=== PATIENT | male | born 1955 | race Caucasian/White ===

== ENCOUNTER 2018-06-12 09:10 | Emergency (ER) | payer BC ==
[~2018-06-12 09:10] MED LIST: Sodium Chloride 0.9% 100 ML BAG ONE
--- NOTE | 2018-06-12 09:40 | RAD ---
PORTABLE CHEST: Date: 06-12-18 Provided Clinical History: Dyspnea. FINDINGS: Comparison 08-16-17. There is somewhat mass like opacity involving the left hilar/parahilar region. The re is widening of the superior mediastinum. There is poor definition to the left heart margin that ma y reflect lingular atelectasis or infiltrate. Prominence of the pulmonary interstitium is again seen. There is no evidence for pneumothorax. Post-operative changes involve the cervical spine. Left subcl makeda cardiac pacing device is again seen. IMPRESSION: 1. Abnormal chest radiograph. Hilar/parahilar mass like opacity and silhouetting of the left heart ma rgin may be on the basis of infectious or neoplastic etiologies. 2. Widening of the superior mediastinum may reflect mediastinal mass or adenopathy. Other etiologies are not excluded. 3. Consider chest CT for further evaluation. POS: [facility]
[2018-06-12 09:42] LABS: #Basophils 0.1 thou/uL (0.0-0.2); #Eosinphils 0.2 thou/uL (0.0-0.7); #Lymphocytes 1.6 thou/uL (1.20-3.40); #Monocytes 0.6 thou/uL (0.11-0.59); #Neutrophils 9.7 thou/uL (1.40-6.50); %Basophils 0.8 % (0.0-1.0); %Eosinophils 1.8 % (0.0-10.0); %Monocytes 4.6 % (0.0-10.0); %Neutrophils 79.8 % (42.0-75.0); Hemoglobin 17.1 g/dL (14.0-18.0); Mean Corpuscular HGB CONC 31.3 g/dL (32.0-36.0); Mean Corpuscular Hemoglobin 30.8 pg (27.0-31.0); Mean Corpuscular Volume 98.3 fL (78.0-98.0); Mean Platelet Volume 6.9 fL (7.4-10.4); Platelet Count 155 thou/uL (130-400); RBC Distribution Width 12.9 % (11.5-14.5); Red Blood Cell (RBC) Count 5.54 mill/uL (4.70-6.10); White Blood Cell (WBC) Count 12.2 thou/uL (4.8-10.8)
[2018-06-12 10:04] LABS: O2 Tension (PvO2) 107.6 mmHg (35.0-45.0); pH (Venous) 7.409 (7.35-7.45)
[2018-06-12 10:05] LABS: Base Excess-Venous -0.4 mmol/L (0 (+/- 2.5)); Calcium, Ionized 1.15 mmol/L (1.12-1.32); Hemoglobin - Calc 18.4 g/dL (12.0-18.0); Potassium 3.9 mmol/L (3.4-4.7); T. Carbon Dioxide 25.2 mmol/L (1.0-85.0); vO2 Saturation-calc 98.2 % (94-98)
[2018-06-12 10:06] LABS: ALT (SGPT) 30 U/L (8-55); AST (SGOT) 24 U/L (5-34); Alkaline Phosphatase 65 U/L (40-150); Anion Gap 13 mmol/L (10-20); BUN (Urea Nitrogen) 25 mg/dL (8.4-25.7); Bilirubin, Total 0.7 mg/dL (0.2-1.2); Calc. Creatinine Clearance 0 mL/min (70-130); Calcium 8.8 mg/dL (7.8-10.44); Carbon Dioxide 22 mmol/L (22-29); Chloride 108 mmol/L (98-107); Estimated GFR-MDRD Greater than 90; Globulin 2.5 g/dL (2.4-3.5); Glucose 106 mg/dL (70-105); Potassium 4.3 mmol/L (3.5-5.1); Protein, Total 6.5 g/dL (6.0-8.3); Sodium 139 mmol/L (136-145)
--- NOTE | 2018-06-12 10:46 | CT ---
CT CHEST WITHOUT CONTRAST: Date: 06/12/18 HISTORY: Dyspnea. Unproductive cough. COMPARISON: Chest radiograph dated 06/12/18. FINDINGS: There is a large left perihilar mass extending into the mediastinum and left upper lobe with postobst ructive bronchiectasis. There is extensive subcarinal AP window and prevascular adenopathy. Overall, this mass is difficult to fully measure given the lack of intravenous contrast, although measures verito roximately 5.0 x 8.0 x 6.0 cm. The confluent prevascular adenopathy is almost as large as the primary mass. There is right paratracheal, paraesophageal, subcarinal adenopathy. There are also right parah ilar lymph nodes. Postobstructive pneumonitis in left upper lobe with likely superimposed lymphangitic spread of tumor. There is narrowing of the apical posterior anterior bronchi. There are metastatic nodules throughout the lingula and left upper lobe. The largest lingular metastatic focus measures 1.2 cm in size. No metastatic foci are seen within the lower lobes. Moderate paraseptal and centrilobular emphysema. No acute thoracic spine compression fracture. No acute rib fracture. No suspicious osteoblastic or os teolytic foci. IMPRESSION: Large left perihilar mass with mediastinal invasion, as well as extensive subcarinal, prevascular, AP window, right paratracheal adenopathy, as well as right hilar lymph nodes. This is cancer until prov en otherwise. There is metastatic satellite nodules throughout the left upper lobe, as well as postob structive pneumonitis and superimposed lymphangitic spread of tumor. CODE T. CODE LN. POS: [facility]
[2018-06-12] MEDS ORDERED: Cefepime 1 GM VIAL ONE (11:33)
[2018-06-12] MEDS ORDERED: methylPREDNISolone Sod Succ/PF 125 MG/2 ML VIAL ONE (11:33)
== END 2018-06-12 11:47 | disposition short-term general hospital (02) ==
LOC: MADERS 09:10
DX: C34.92 Malignant neoplasm of unspecified part of left bronchus or lung (principal); I10 Essential (primary) hypertension; K21.9 Gastro-esophageal reflux disease without esophagitis; I48.91 Unspecified atrial fibrillation; E78.00 Pure hypercholesterolemia, unspecified; F17.210 Nicotine dependence, cigarettes, uncomplicated; Z79.899 Other long term (current) drug therapy; Z79.82 Long term (current) use of aspirin
CPT/HCPCS: 71045; 71250; 80053; 82330; 82803; 83880; 84484; 85025; 87804; 93005; 96374; 96375; J0692; J2930; J7050

== ENCOUNTER 2018-07-29 09:08 | Outpatient (CLI) | payer BC ==
[2018-07-29 09:37] LABS: Hemoglobin 15.8 g/dL (14.0-18.0); Mean Corpuscular HGB CONC 32.3 g/dL (32.0-36.0); Mean Corpuscular Hemoglobin 30.7 pg (27.0-31.0); Mean Corpuscular Volume 94.9 fL (78.0-98.0); Mean Platelet Volume 7.3 fL (7.4-10.4); Platelet Count 148 thou/uL (130-400); Red Blood Cell (RBC) Count 5.15 mill/uL (4.70-6.10); White Blood Cell (WBC) Count 7.6 thou/uL (4.8-10.8)
[2018-07-29 09:53] LABS: ALT (SGPT) 20 U/L (8-55); AST (SGOT) 15 U/L (5-34); Alkaline Phosphatase 79 U/L (40-150); Anion Gap 13 mmol/L (10-20); BUN (Urea Nitrogen) 21 mg/dL (8.4-25.7); Bilirubin, Total 0.7 mg/dL (0.2-1.2); Calc. Creatinine Clearance 0 mL/min (70-130); Carbon Dioxide 22 mmol/L (22-29); Estimated GFR-MDRD Greater than 90; Globulin 2.8 g/dL (2.4-3.5); Glucose 105 mg/dL (70-105); Phosphorus 3.1 mg/dL (2.3-4.7); Potassium 4.3 mmol/L (3.5-5.1); Protein, Total 6.8 g/dL (6.0-8.3); Sodium 139 mmol/L (136-145); Uric Acid 5.5 mg/dL (3.5-7.2)
[2018-07-29 10:53] LABS: Chloride 108 mmol/L (98-107)
== END 2018-07-29 09:09 | disposition home or self-care (01) ==
LOC: MADLAB 09:08
PROVIDERS: ATTEND Internal Medicine Hematology & Oncology
DX: C34.02 Malignant neoplasm of left main bronchus (principal); D69.59 Other secondary thrombocytopenia
CPT/HCPCS: 36415; 80053; 83615; 84100; 84436; 84443; 84550; 85027

== ENCOUNTER 2018-12-18 13:24 | Emergency (ER) | payer BC ==
[2018-12-18] MEDS ORDERED: Acetaminophen/Codeine 30-300mg Tablet ONE (13:49)
--- NOTE | 2018-12-18 14:40 | CT ---
LUMBAR SPINE CT NONCONTRAST: 12/18/18 INDICATION: Low back pain with history of malignancy, metastatic disease. COMPARISON: Reference made to 12/31/08 exam. Chest, abdomen and pelvic CT 12/05/18. FINDINGS: Prominent sclerosis is seen involving the end plates of the mid to lower lumbar spine most pronounce d at L2-3 through L4 segments. There is gas vacuum phenomenon at multiple levels. Incidental note of nodularity of the left adrenal gland. There is colonic diverticulosis and scattere d vascular disease. There is redemonstration of prior posterior decompression at the lower lumbar spine. IMPRESSION: No evidence of acute compression fracture or subluxation of the lumbar spine. Prominent degenerative change. No interval osseous metastatic disease is identified. POS: [facility]
== END 2018-12-18 15:11 | disposition home or self-care (01) ==
LOC: MADERS 13:24
DX: M54.5 Low back pain (principal); I48.91 Unspecified atrial fibrillation; K21.9 Gastro-esophageal reflux disease without esophagitis; E78.5 Hyperlipidemia, unspecified; I10 Essential (primary) hypertension; E66.9 Obesity, unspecified; G47.30 Sleep apnea, unspecified; Z87.891 Personal history of nicotine dependence; Z79.82 Long term (current) use of aspirin; Z79.51 Long term (current) use of inhaled steroids; Z79.899 Other long term (current) drug therapy
CPT/HCPCS: 72131

== ENCOUNTER 2019-02-02 18:23 | Emergency (ER) | payer BC ==
[~2019-02-02 18:23] MED LIST changes: +Iopamidol 370 76% 100 ML VIAL ONE; -Sodium Chloride 0.9% 100 ML BAG ONE
[2019-02-02 19:28] LABS: #Basophils 0.1 thou/uL (0.0-0.2); #Eosinphils 0.2 thou/uL (0.0-0.7); #Lymphocytes 1.7 thou/uL (1.20-3.40); #Monocytes 0.6 thou/uL (0.11-0.59); #Neutrophils 4.5 thou/uL (1.40-6.50); %Basophils 1.3 % (0.0-1.0); %Eosinophils 2.9 % (0.0-10.0); %Monocytes 8.6 % (0.0-10.0); %Neutrophils 63.2 % (42.0-75.0); Hemoglobin 14.9 g/dL (14.0-18.0); Mean Corpuscular HGB CONC 33.1 g/dL (32.0-36.0); Mean Corpuscular Hemoglobin 31.1 pg (27.0-31.0); Mean Corpuscular Volume 93.8 fL (78.0-98.0); Mean Platelet Volume 6.7 fL (7.4-10.4); Platelet Count 124 thou/uL (130-400); RBC Distribution Width 12.8 % (11.5-14.5); Red Blood Cell (RBC) Count 4.81 mill/uL (4.70-6.10)
[2019-02-02 19:46] LABS: ALT (SGPT) 21 U/L (8-55); AST (SGOT) 20 U/L (5-34); Alkaline Phosphatase 78 U/L (40-150); Anion Gap 15 mmol/L (10-20); BUN (Urea Nitrogen) 18 mg/dL (8.4-25.7); Bilirubin, Total 0.6 mg/dL (0.2-1.2); Calc. Creatinine Clearance 0 mL/min (70-130); Calcium 8.6 mg/dL (7.8-10.44); Carbon Dioxide 22 mmol/L (23-31); Chloride 109 mmol/L (98-107); Estimated GFR-MDRD Greater than 90; Globulin 2.7 g/dL (2.4-3.5); Glucose 110 mg/dL (80-115); Potassium 3.6 mmol/L (3.5-5.1); Protein, Total 6.7 g/dL (5.8-8.1); Sodium 142 mmol/L (136-145)
--- NOTE | 2019-02-02 20:52 | CT ---
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 FINDINGS: There is no evidence of recurrent neoplasm in the left hilum or in the left upper lobe lung parenchym a.. Chronic interstitial changes in the lungs, including peripheral subpleural reticular densities in the anterior segments of bilateral upper lobes, and to a lesser degree at other areas,. Such changes are also noted at the posterior bases of the bilateral lower lobes, greater than previou sly. No new consolidation or new pulmonary mass. No pulmonary edema, pneumothorax, or pleural effusion. No thoracic aortic aneurysm. Atherosclerotic calcific patient of coronary arteries. No card iomegaly or pericardial effusion. Left subclavian pacemaker. No mediastinal or hilar lymphadenopathy. IMPRESSION: 1. No evidence of recurrent or residual lung cancer. 2. Chronic mild to moderate interstitial lung disease. 3. No acute findings.
== END 2019-02-02 21:10 | disposition home or self-care (01) ==
LOC: MADERS 18:23
DX: S16.1XXA Strain of muscle, fascia and tendon at neck level, initial encounter (principal); G47.30 Sleep apnea, unspecified; K21.9 Gastro-esophageal reflux disease without esophagitis; I48.91 Unspecified atrial fibrillation; Z87.891 Personal history of nicotine dependence; Z79.899 Other long term (current) drug therapy; Z79.82 Long term (current) use of aspirin; X58.XXXA Exposure to other specified factors, initial encounter
CPT/HCPCS: 70491; 71260; 80053; 85025; Q9967

== ENCOUNTER 2019-07-10 13:24 | Outpatient (CLI) | payer BC ==
[2019-07-10 13:45] LABS: Hemoglobin 17.2 g/dL (14.0-18.0); Mean Corpuscular Hemoglobin 30.3 pg (27.0-31.0); Mean Corpuscular Volume 97.7 fL (78.0-98.0); Mean Platelet Volume 7.9 fL (7.4-10.4); Platelet Count 161 thou/uL (130-400); RBC Distribution Width 12.5 % (11.5-14.5); Red Blood Cell (RBC) Count 5.68 mill/uL (4.70-6.10); White Blood Cell (WBC) Count 7.7 thou/uL (4.8-10.8)
[2019-07-10 14:00] LABS: ALT (SGPT) 26 U/L (8-55); AST (SGOT) 20 U/L (5-34); Albumin 4.2 g/dL (3.4-4.8); Alkaline Phosphatase 82 U/L (40-110); Anion Gap 14 mmol/L (10-20); BUN (Urea Nitrogen) 28 mg/dL (8.4-25.7); Bilirubin, Direct 0.3 mg/dL (0.1-0.3); Bilirubin, Total 0.8 mg/dL (0.2-1.2); Calc. Creatinine Clearance 0 mL/min (70-130); Calcium 9.2 mg/dL (7.8-10.44); Carbon Dioxide 26 mmol/L (23-31); Chloride 107 mmol/L (98-107); Estimated GFR-MDRD 86; Glucose 95 mg/dL (80-115); Protein, Total 7.2 g/dL (5.8-8.1); Sodium 143 mmol/L (136-145); Uric Acid 6.2 mg/dL (3.5-7.2)
[2019-07-10 14:15] LABS: Thyroid Stimulating Hormone 0.8278 uIU/mL (0.35-4.94)
[2019-07-10 21:56] LABS: LDH 303 U/L (125-220)
[2019-07-10 22:13] LABS: T4 7.8 ug/dL (4.87-11.72)
== END 2019-07-10 13:25 | disposition home or self-care (01) ==
LOC: MADLAB 13:24
PROVIDERS: ATTEND Internal Medicine
DX: C34.02 Malignant neoplasm of left main bronchus (principal); D69.59 Other secondary thrombocytopenia
CPT/HCPCS: 36415; 80053; 82248; 83615; 84100; 84436; 84443; 84550; 85027

== ENCOUNTER 2019-07-31 10:55 | Outpatient (CLI) | payer BC ==
[2019-07-31 11:20] LABS: Hemoglobin 16.4 g/dL (14.0-18.0); Mean Corpuscular HGB CONC 31.8 g/dL (32.0-36.0); Mean Corpuscular Hemoglobin 30.6 pg (27.0-31.0); Mean Corpuscular Volume 96.3 fL (78.0-98.0); Mean Platelet Volume 7.5 fL (7.4-10.4); Platelet Count 146 thou/uL (130-400); RBC Distribution Width 12.6 % (11.5-14.5); Red Blood Cell (RBC) Count 5.34 mill/uL (4.70-6.10)
[2019-07-31 11:44] LABS: ALT (SGPT) 24 U/L (8-55); AST (SGOT) 20 U/L (5-34); Albumin 4.1 g/dL (3.4-4.8); Alkaline Phosphatase 82 U/L (40-110); Anion Gap 14 mmol/L (10-20); BUN (Urea Nitrogen) 22 mg/dL (8.4-25.7); Bilirubin, Direct 0.4 mg/dL (0.1-0.3); Bilirubin, Total 0.7 mg/dL (0.2-1.2); Calc. Creatinine Clearance 0 mL/min (70-130); Calcium 8.7 mg/dL (7.8-10.44); Carbon Dioxide 24 mmol/L (23-31); Chloride 110 mmol/L (98-107); Estimated GFR-MDRD Greater than 90; Globulin 2.4 g/dL (2.4-3.5); Glucose 101 mg/dL (80-115); Phosphorus 2.9 mg/dL (2.3-4.7); Potassium 3.9 mmol/L (3.5-5.1); Protein, Total 6.5 g/dL (5.8-8.1); Sodium 144 mmol/L (136-145)
[2019-07-31 17:25] LABS: LDH 281 U/L (125-220)
== END 2019-07-31 10:56 | disposition home or self-care (01) ==
LOC: MADLAB 10:55
PROVIDERS: ATTEND Internal Medicine Hematology & Oncology
DX: C34.02 Malignant neoplasm of left main bronchus (principal)
CPT/HCPCS: 36415; 80053; 82248; 83615; 84100; 84436; 84443; 84550; 85027

== ENCOUNTER 2019-10-02 13:34 | Outpatient (CLI) | payer BC ==
[2019-10-02 14:01] LABS: Hemoglobin 16.2 g/dL (14.0-18.0); Mean Corpuscular HGB CONC 32.3 g/dL (32.0-36.0); Mean Corpuscular Hemoglobin 31.2 pg (27.0-31.0); Mean Corpuscular Volume 96.5 fL (78.0-98.0); Mean Platelet Volume 8.1 fL (7.4-10.4); Platelet Count 139 thou/uL (130-400); RBC Distribution Width 12.5 % (11.5-14.5); Red Blood Cell (RBC) Count 5.19 mill/uL (4.70-6.10)
[2019-10-02 14:30] LABS: ALT (SGPT) 29 U/L (8-55); AST (SGOT) 22 U/L (5-34); Albumin 4.1 g/dL (3.4-4.8); Alkaline Phosphatase 86 U/L (40-110); Anion Gap 14 mmol/L (10-20); BUN (Urea Nitrogen) 27 mg/dL (8.4-25.7); Bilirubin, Direct 0.3 mg/dL (0.1-0.3); Bilirubin, Total 0.8 mg/dL (0.2-1.2); Calc. Creatinine Clearance 0 mL/min (70-130); Calcium 8.7 mg/dL (7.8-10.44); Carbon Dioxide 25 mmol/L (23-31); Chloride 106 mmol/L (98-107); Estimated GFR-MDRD 79; Globulin 2.7 g/dL (2.4-3.5); Glucose 142 mg/dL (80-115); Phosphorus 3.4 mg/dL (2.3-4.7); Potassium 4.1 mmol/L (3.5-5.1); Protein, Total 6.8 g/dL (5.8-8.1); Sodium 141 mmol/L (136-145); Uric Acid 7.5 mg/dL (3.5-7.2)
[2019-10-02 14:45] LABS: Thyroid Stimulating Hormone 0.9017 uIU/mL (0.35-4.94)
[2019-10-02 22:00] LABS: T4 8.8 ug/dL (4.87-11.72)
[2019-10-03 09:39] LABS: LDH 273 U/L (125-220)
== END 2019-10-02 13:35 | disposition home or self-care (01) ==
LOC: MADLAB 13:34
PROVIDERS: ATTEND Internal Medicine Hematology & Oncology
DX: C34.02 Malignant neoplasm of left main bronchus (principal); D69.59 Other secondary thrombocytopenia
CPT/HCPCS: 36415; 80053; 82248; 83615; 84100; 84436; 84443; 84550; 85027

== ENCOUNTER 2019-10-22 13:10 | Outpatient (CLI) | payer BC ==
[2019-10-22 13:41] LABS: Hemoglobin 15.9 g/dL (14.0-18.0); Mean Corpuscular HGB CONC 33.2 g/dL (32.0-36.0); Mean Corpuscular Hemoglobin 32.4 pg (27.0-31.0); Mean Corpuscular Volume 97.6 fL (78.0-98.0); Mean Platelet Volume 9.2 fL (7.4-10.4); Platelet Count 148 thou/uL (130-400); RBC Distribution Width 12.9 % (11.5-14.5); White Blood Cell (WBC) Count 8.5 thou/uL (4.8-10.8)
[2019-10-22 14:05] LABS: ALT (SGPT) 25 U/L (8-55); AST (SGOT) 21 U/L (5-34); Albumin 4.1 g/dL (3.4-4.8); Alkaline Phosphatase 82 U/L (40-110); Anion Gap 14 mmol/L (10-20); BUN (Urea Nitrogen) 22 mg/dL (8.4-25.7); Bilirubin, Direct 0.4 mg/dL (0.1-0.3); Bilirubin, Total 0.7 mg/dL (0.2-1.2); Calc. Creatinine Clearance 0 mL/min (70-130); Calcium 8.1 mg/dL (7.8-10.44); Carbon Dioxide 22 mmol/L (23-31); Chloride 109 mmol/L (98-107); Estimated GFR-MDRD 88; Globulin 2.4 g/dL (2.4-3.5); Glucose 101 mg/dL (80-115); Phosphorus 2.8 mg/dL (2.3-4.7); Potassium 4.1 mmol/L (3.5-5.1); Protein, Total 6.5 g/dL (5.8-8.1); Sodium 141 mmol/L (136-145); Uric Acid 6.3 mg/dL (3.5-7.2)
[2019-10-22 14:10] LABS: Thyroid Stimulating Hormone 0.7895 uIU/mL (0.35-4.94)
[2019-10-22 21:49] LABS: LDH 313 U/L (125-220)
[2019-10-22 22:01] LABS: T4 8.2 ug/dL (4.87-11.72)
== END 2019-10-22 13:11 | disposition home or self-care (01) ==
LOC: MADLAB 13:10
PROVIDERS: ATTEND Internal Medicine Hematology & Oncology
DX: C34.02 Malignant neoplasm of left main bronchus (principal); D69.59 Other secondary thrombocytopenia
CPT/HCPCS: 36415; 80053; 82248; 83615; 84100; 84436; 84443; 84550; 85027

== ENCOUNTER 2019-11-12 09:17 | Outpatient (CLI) | payer BC ==
[2019-11-12 10:05] LABS: ALT (SGPT) 19 U/L (8-55); AST (SGOT) 16 U/L (5-34); Albumin 3.9 g/dL (3.4-4.8); Alkaline Phosphatase 86 U/L (40-110); Anion Gap 14 mmol/L (10-20); BUN (Urea Nitrogen) 25 mg/dL (8.4-25.7); Bilirubin, Direct 0.3 mg/dL (0.1-0.3); Bilirubin, Total 0.5 mg/dL (0.2-1.2); Calc. Creatinine Clearance 0 mL/min (70-130); Calcium 8.6 mg/dL (7.8-10.44); Carbon Dioxide 20 mmol/L (23-31); Chloride 110 mmol/L (98-107); Estimated GFR-MDRD Greater than 90; Globulin 2.8 g/dL (2.4-3.5); Glucose 117 mg/dL (80-115); Phosphorus 3.4 mg/dL (2.3-4.7); Potassium 3.9 mmol/L (3.5-5.1); Protein, Total 6.7 g/dL (5.8-8.1); Sodium 140 mmol/L (136-145); Uric Acid 5.6 mg/dL (3.5-7.2)
[2019-11-12 10:20] LABS: Thyroid Stimulating Hormone 0.989 uIU/mL (0.35-4.94)
[2019-11-12 10:46] LABS: Hemoglobin 16.6 g/dL (14.0-18.0); Mean Corpuscular HGB CONC 31.4 g/dL (32.0-36.0); Mean Corpuscular Hemoglobin 30.7 pg (27.0-31.0); Mean Corpuscular Volume 97.6 fL (78.0-98.0); Mean Platelet Volume 8.1 fL (7.4-10.4); Platelet Count 155 thou/uL (130-400); RBC Distribution Width 12.7 % (11.5-14.5); Red Blood Cell (RBC) Count 5.41 mill/uL (4.70-6.10); White Blood Cell (WBC) Count 7.8 thou/uL (4.8-10.8)
[2019-11-12 17:22] LABS: LDH 291 U/L (125-220)
[2019-11-12 17:40] LABS: T4 8.2 ug/dL (4.87-11.72)
== END 2019-11-12 09:18 | disposition home or self-care (01) ==
LOC: MADLAB 09:17
PROVIDERS: ATTEND Internal Medicine Hematology & Oncology
DX: C34.02 Malignant neoplasm of left main bronchus (principal); D69.59 Other secondary thrombocytopenia
CPT/HCPCS: 36415; 80053; 82248; 83615; 84100; 84436; 84443; 84550; 85027

== ENCOUNTER 2019-12-04 07:17 | Outpatient (CLI) | payer BC ==
[2019-12-04 07:37] LABS: Hemoglobin 15.6 g/dL (14.0-18.0); Mean Corpuscular HGB CONC 31.1 g/dL (32.0-36.0); Mean Corpuscular Hemoglobin 30.1 pg (27.0-31.0); Mean Corpuscular Volume 96.8 fL (78.0-98.0); Mean Platelet Volume 7.7 fL (7.4-10.4); Platelet Count 142 thou/uL (130-400); RBC Distribution Width 12.8 % (11.5-14.5); Red Blood Cell (RBC) Count 5.19 mill/uL (4.70-6.10); White Blood Cell (WBC) Count 7.4 thou/uL (4.8-10.8)
[2019-12-04 07:55] LABS: ALT (SGPT) 23 U/L (8-55); AST (SGOT) 19 U/L (5-34); Alkaline Phosphatase 86 U/L (40-110); Anion Gap 14 mmol/L (10-20); BUN (Urea Nitrogen) 23 mg/dL (8.4-25.7); Bilirubin, Direct 0.2 mg/dL (0.1-0.3); Bilirubin, Total 0.4 mg/dL (0.2-1.2); Calc. Creatinine Clearance 0 mL/min (70-130); Calcium 8.8 mg/dL (7.8-10.44); Carbon Dioxide 20 mmol/L (23-31); Chloride 111 mmol/L (98-107); Estimated GFR-MDRD Greater than 90; Globulin 2.6 g/dL (2.4-3.5); Glucose 112 mg/dL (80-115); Phosphorus 3.6 mg/dL (2.3-4.7); Potassium 4.1 mmol/L (3.5-5.1); Protein, Total 6.6 g/dL (5.8-8.1); Sodium 141 mmol/L (136-145); Uric Acid 5.5 mg/dL (3.5-7.2)
[2019-12-04 08:14] LABS: Thyroid Stimulating Hormone 1.367 uIU/mL (0.35-4.94)
[2019-12-04 18:03] LABS: LDH 271 U/L (125-220)
[2019-12-04 18:06] LABS: T4 7.1 ug/dL (4.87-11.72)
== END 2019-12-04 07:18 | disposition home or self-care (01) ==
LOC: MADLAB 07:17
PROVIDERS: ATTEND Internal Medicine Hematology & Oncology
DX: C34.02 Malignant neoplasm of left main bronchus (principal); D69.59 Other secondary thrombocytopenia
CPT/HCPCS: 36415; 80053; 82248; 83615; 84100; 84436; 84443; 84550; 85027

== ENCOUNTER 2019-12-25 09:24 | Outpatient (CLI) | payer BC ==
[2019-12-25 10:08] LABS: ALT (SGPT) 23 U/L (8-55); AST (SGOT) 20 U/L (5-34); Albumin 4.1 g/dL (3.4-4.8); Alkaline Phosphatase 87 U/L (40-110); Anion Gap 13 mmol/L (10-20); BUN (Urea Nitrogen) 20 mg/dL (8.4-25.7); Bilirubin, Direct 0.2 mg/dL (0.1-0.3); Bilirubin, Total 0.4 mg/dL (0.2-1.2); Calc. Creatinine Clearance 0 mL/min (70-130); Calcium 8.8 mg/dL (7.8-10.44); Carbon Dioxide 22 mmol/L (23-31); Chloride 108 mmol/L (98-107); Estimated GFR-MDRD Greater than 90; Globulin 2.8 g/dL (2.4-3.5); Glucose 101 mg/dL (80-115); Phosphorus 3.1 mg/dL (2.3-4.7); Potassium 4.3 mmol/L (3.5-5.1); Protein, Total 6.9 g/dL (5.8-8.1); Sodium 139 mmol/L (136-145); Uric Acid 5.4 mg/dL (3.5-7.2)
[2019-12-25 10:15] LABS: Hemoglobin 16.2 g/dL (14.0-18.0); Mean Corpuscular HGB CONC 31.5 g/dL (32.0-36.0); Mean Corpuscular Hemoglobin 30.3 pg (27.0-31.0); Mean Corpuscular Volume 96.1 fL (78.0-98.0); Mean Platelet Volume 7.4 fL (7.4-10.4); Platelet Count 152 thou/uL (130-400); RBC Distribution Width 12.6 % (11.5-14.5); Red Blood Cell (RBC) Count 5.35 mill/uL (4.70-6.10); White Blood Cell (WBC) Count 7.7 thou/uL (4.8-10.8)
[2019-12-25 10:23] LABS: Thyroid Stimulating Hormone 0.8624 uIU/mL (0.35-4.94)
[2019-12-25 17:28] LABS: LDH 272 U/L (125-220)
== END 2019-12-25 09:25 | disposition home or self-care (01) ==
LOC: MADLABBHPM 09:24
PROVIDERS: ATTEND Internal Medicine Hematology & Oncology
DX: C34.02 Malignant neoplasm of left main bronchus (principal); D69.59 Other secondary thrombocytopenia
CPT/HCPCS: 36415; 80053; 82248; 83615; 84100; 84436; 84443; 84550; 85027

== ENCOUNTER 2020-02-05 09:15 | Outpatient (CLI) | payer BC ==
[2020-02-05 09:51] LABS: Hemoglobin 15.1 g/dL (14.0-18.0); Mean Corpuscular HGB CONC 31.1 g/dL (32.0-36.0); Mean Corpuscular Hemoglobin 30.2 pg (27.0-31.0); Mean Corpuscular Volume 97.2 fL (78.0-98.0); Mean Platelet Volume 7.3 fL (7.4-10.4); Platelet Count 138 thou/uL (130-400); RBC Distribution Width 13.1 % (11.5-14.5); White Blood Cell (WBC) Count 6.7 thou/uL (4.8-10.8)
[2020-02-05 10:00] LABS: ALT (SGPT) 23 U/L (8-55); AST (SGOT) 18 U/L (5-34); Albumin 3.9 g/dL (3.4-4.8); Alkaline Phosphatase 85 U/L (40-110); Anion Gap 14 mmol/L (10-20); BUN (Urea Nitrogen) 24 mg/dL (8.4-25.7); Bilirubin, Direct 0.4 mg/dL (0.1-0.3); Bilirubin, Total 0.7 mg/dL (0.2-1.2); Calc. Creatinine Clearance 0 mL/min (70-130); Calcium 8.3 mg/dL (7.8-10.44); Carbon Dioxide 21 mmol/L (23-31); Chloride 109 mmol/L (98-107); Estimated GFR-MDRD Greater than 90; Globulin 2.6 g/dL (2.4-3.5); Glucose 144 mg/dL (80-115); Phosphorus 2.6 mg/dL (2.3-4.7); Potassium 3.5 mmol/L (3.5-5.1); Protein, Total 6.5 g/dL (5.8-8.1); Sodium 140 mmol/L (136-145); Uric Acid 5.6 mg/dL (3.5-7.2)
[2020-02-05 10:08] LABS: Thyroid Stimulating Hormone 0.5891 uIU/mL (0.35-4.94)
[2020-02-05 17:45] LABS: LDH 287 U/L (125-220)
[2020-02-05 20:34] LABS: Free T4 (Free Thyroxine) 0.95 ng/dL (0.70-1.48)
== END 2020-02-05 09:16 | disposition home or self-care (01) ==
LOC: MADLAB 09:15
PROVIDERS: ATTEND Internal Medicine Hematology & Oncology
DX: C34.02 Malignant neoplasm of left main bronchus (principal); D69.59 Other secondary thrombocytopenia
CPT/HCPCS: 36415; 80053; 82248; 83615; 84100; 84439; 84443; 84550; 85027

== ENCOUNTER 2020-02-26 09:15 | Outpatient (CLI) | payer BC ==
[2020-02-26 09:51] LABS: Hemoglobin 15.9 g/dL (14.0-18.0); Mean Corpuscular HGB CONC 32.3 g/dL (32.0-36.0); Mean Corpuscular Hemoglobin 30.9 pg (27.0-31.0); Mean Corpuscular Volume 95.6 fL (78.0-98.0); Mean Platelet Volume 7.2 fL (7.4-10.4); Platelet Count 151 thou/uL (130-400); RBC Distribution Width 12.6 % (11.5-14.5); Red Blood Cell (RBC) Count 5.13 mill/uL (4.70-6.10); White Blood Cell (WBC) Count 7.2 thou/uL (4.8-10.8)
[2020-02-26 10:05] LABS: ALT (SGPT) 22 U/L (8-55); AST (SGOT) 17 U/L (5-34); Albumin 3.9 g/dL (3.4-4.8); Alkaline Phosphatase 91 U/L (40-110); Anion Gap 13 mmol/L (10-20); BUN (Urea Nitrogen) 19 mg/dL (8.4-25.7); Bilirubin, Direct 0.3 mg/dL (0.1-0.3); Bilirubin, Total 0.5 mg/dL (0.2-1.2); Calc. Creatinine Clearance 0 mL/min (70-130); Calcium 8.5 mg/dL (7.8-10.44); Carbon Dioxide 22 mmol/L (23-31); Chloride 108 mmol/L (98-107); Estimated GFR-MDRD Greater than 90; Globulin 2.6 g/dL (2.4-3.5); Glucose 94 mg/dL (80-115); Phosphorus 3.1 mg/dL (2.3-4.7); Potassium 4.4 mmol/L (3.5-5.1); Protein, Total 6.5 g/dL (5.8-8.1); Sodium 139 mmol/L (136-145); Uric Acid 5.5 mg/dL (3.5-7.2)
[2020-02-26 10:26] LABS: Thyroid Stimulating Hormone 0.6764 uIU/mL (0.35-4.94)
[2020-02-26 17:11] LABS: LDH 272 U/L (125-220)
[2020-02-26 17:31] LABS: T4 7.8 ug/dL (4.87-11.72)
== END 2020-02-26 09:16 | disposition home or self-care (01) ==
LOC: MADLAB 09:15
PROVIDERS: ATTEND Internal Medicine Hematology & Oncology
DX: C34.02 Malignant neoplasm of left main bronchus (principal); D69.59 Other secondary thrombocytopenia
CPT/HCPCS: 36415; 80053; 82248; 83615; 84100; 84436; 84443; 84550; 85027

== ENCOUNTER 2020-03-18 07:56 | Outpatient (CLI) | payer BC ==
[2020-03-18 08:42] LABS: Hemoglobin 16.3 g/dL (14.0-18.0); Mean Corpuscular HGB CONC 32.4 g/dL (32.0-36.0); Mean Corpuscular Hemoglobin 31.1 pg (27.0-31.0); Mean Corpuscular Volume 95.9 fL (78.0-98.0); Mean Platelet Volume 7.2 fL (7.4-10.4); Platelet Count 158 thou/uL (130-400); RBC Distribution Width 12.8 % (11.5-14.5); Red Blood Cell (RBC) Count 5.24 mill/uL (4.70-6.10); White Blood Cell (WBC) Count 7.9 thou/uL (4.8-10.8)
[2020-03-18 08:56] LABS: ALT (SGPT) 22 U/L (8-55); AST (SGOT) 18 U/L (5-34); Alkaline Phosphatase 87 U/L (40-110); Anion Gap 17 mmol/L (10-20); BUN (Urea Nitrogen) 26 mg/dL (8.4-25.7); Bilirubin, Direct 0.2 mg/dL (0.1-0.3); Bilirubin, Total 0.4 mg/dL (0.2-1.2); Calc. Creatinine Clearance 0 mL/min (70-130); Calcium 8.8 mg/dL (7.8-10.44); Carbon Dioxide 19 mmol/L (23-31); Cardiac Risk 3.9 (Less than 4.5); Chloride 109 mmol/L (98-107); Cholesterol 102 mg/dl (< 200 Desired); Estimated GFR-MDRD Greater than 90; Glucose 111 mg/dL (80-115); HDL Cholesterol 26 mg/dL (>60 Neg Risk); LDL Cholesterol, Calculated 51 mg/dL; Phosphorus 3.3 mg/dL (2.3-4.7); Sodium 141 mmol/L (136-145); Triglycerides 126 mg/dL (Less than 150); Uric Acid 5.5 mg/dL (3.5-7.2)
[2020-03-18 09:15] LABS: Thyroid Stimulating Hormone 0.9172 uIU/mL (0.35-4.94)
[2020-03-18 17:27] LABS: LDH 265 U/L (125-220)
[2020-03-18 17:32] LABS: T4 8.6 ug/dL (4.87-11.72)
== END 2020-03-18 07:57 | disposition home or self-care (01) ==
LOC: MADLAB 07:56
PROVIDERS: ATTEND Internal Medicine
DX: C34.02 Malignant neoplasm of left main bronchus (principal); D69.59 Other secondary thrombocytopenia; E78.00 Pure hypercholesterolemia, unspecified; I10 Essential (primary) hypertension
CPT/HCPCS: 36415; 80053; 80061; 82248; 83615; 84100; 84436; 84443; 84550; 85027

== ENCOUNTER 2020-05-20 07:25 | Outpatient (CLI) | payer BC ==
[2020-05-20 08:05] LABS: ALT (SGPT) 24 U/L (8-55); AST (SGOT) 20 U/L (5-34); Albumin 3.8 g/dL (3.4-4.8); Alkaline Phosphatase 82 U/L (40-110); Anion Gap 14 mmol/L (10-20); BUN (Urea Nitrogen) 24 mg/dL (8.4-25.7); Bilirubin, Direct 0.2 mg/dL (0.1-0.3); Bilirubin, Total 0.4 mg/dL (0.2-1.2); Calc. Creatinine Clearance 0 mL/min (70-130); Calcium 8.5 mg/dL (7.8-10.44); Carbon Dioxide 21 mmol/L (23-31); Chloride 109 mmol/L (98-107); Globulin 2.9 g/dL (2.4-3.5); Glucose 118 mg/dL (80-115); Phosphorus 3.4 mg/dL (2.3-4.7); Protein, Total 6.7 g/dL (5.8-8.1); Sodium 140 mmol/L (136-145)
[2020-05-20 08:08] LABS: Hemoglobin 15.8 g/dL (14.0-18.0); Mean Corpuscular HGB CONC 31.9 g/dL (32.0-36.0); Mean Corpuscular Volume 97.1 fL (78.0-98.0); Mean Platelet Volume 7.5 fL (7.4-10.4); Platelet Count 120 thou/uL (130-400); RBC Distribution Width 12.5 % (11.5-14.5); White Blood Cell (WBC) Count 6.3 thou/uL (4.8-10.8)
[2020-05-20 08:19] LABS: Thyroid Stimulating Hormone 1.4012 uIU/mL (0.35-4.94)
[2020-05-20 17:36] LABS: LDH 263 U/L (125-220)
[2020-05-20 17:53] LABS: Free T4 (Free Thyroxine) 0.9 ng/dL (0.70-1.48)
== END 2020-05-20 07:26 | disposition home or self-care (01) ==
LOC: MADLAB 07:25
PROVIDERS: ATTEND Internal Medicine
DX: C34.02 Malignant neoplasm of left main bronchus (principal); D69.59 Other secondary thrombocytopenia
CPT/HCPCS: 36415; 80053; 82248; 83615; 84100; 84439; 84443; 84550; 85027

== ENCOUNTER 2020-06-30 16:02 | Outpatient (CLI) | payer BC ==
[2020-06-30 16:25] LABS: #Basophils 0.1 thou/uL (0.0-0.2); #Eosinphils 0.2 thou/uL (0.0-0.7); #Monocytes 0.5 thou/uL (0.11-0.59); %Lymphocytes 25.2 % (21.0-51.0); %Neutrophils 63.7 % (42.0-75.0); Mean Corpuscular HGB CONC 32.4 g/dL (32.0-36.0); Mean Corpuscular Hemoglobin 30.8 pg (27.0-31.0); Mean Corpuscular Volume 95.1 fL (78.0-98.0); Mean Platelet Volume 7.3 fL (7.4-10.4); Platelet Count 146 thou/uL (130-400); RBC Distribution Width 11.8 % (11.5-14.5); White Blood Cell (WBC) Count 7.8 thou/uL (4.8-10.8)
[2020-06-30 16:42] LABS: ALT (SGPT) 26 U/L (8-55); AST (SGOT) 21 U/L (5-34); Albumin 4.1 g/dL (3.4-4.8); Alkaline Phosphatase 89 U/L (40-110); Anion Gap 12 mmol/L (10-20); BUN (Urea Nitrogen) 23 mg/dL (8.4-25.7); Bilirubin, Direct 0.2 mg/dL (0.1-0.3); Bilirubin, Total 0.6 mg/dL (0.2-1.2); Calc. Creatinine Clearance 0 mL/min (70-130); Calcium 8.7 mg/dL (7.8-10.44); Carbon Dioxide 24 mmol/L (23-31); Chloride 108 mmol/L (98-107); Glucose 111 mg/dL (80-115); Phosphorus 3.7 mg/dL (2.3-4.7); Protein, Total 7.1 g/dL (5.8-8.1); Sodium 140 mmol/L (136-145); Uric Acid 5.2 mg/dL (3.5-7.2)
[2020-06-30 17:17] LABS: Thyroid Stimulating Hormone 0.9662 uIU/mL (0.35-4.94)
[2020-06-30 22:15] LABS: LDH 280 U/L (125-220)
[2020-06-30 22:37] LABS: T4 8.3 ug/dL (4.87-11.72)
== END 2020-06-30 16:03 | disposition home or self-care (01) ==
LOC: MADLAB 16:02
PROVIDERS: ATTEND Internal Medicine Hematology & Oncology
DX: C34.02 Malignant neoplasm of left main bronchus (principal); D69.59 Other secondary thrombocytopenia
CPT/HCPCS: 36415; 80053; 82248; 83615; 84100; 84436; 84443; 84550; 85025

== ENCOUNTER 2020-09-10 07:50 | Outpatient (CLI) | payer BC ==
[2020-09-10 08:13] LABS: Mean Corpuscular HGB CONC 32.3 g/dL (32.0-36.0); Mean Corpuscular Hemoglobin 30.6 pg (27.0-31.0); Mean Corpuscular Volume 94.8 fL (78.0-98.0); Mean Platelet Volume 7.5 fL (7.4-10.4); Platelet Count 131 thou/uL (130-400); RBC Distribution Width 12.8 % (11.5-14.5); Red Blood Cell (RBC) Count 5.22 mill/uL (4.70-6.10); White Blood Cell (WBC) Count 6.6 thou/uL (4.8-10.8)
[2020-09-10 08:34] LABS: ALT (SGPT) 26 U/L (8-55); AST (SGOT) 19 U/L (5-34); Albumin 3.8 g/dL (3.4-4.8); Alkaline Phosphatase 86 U/L (40-110); Anion Gap 12 mmol/L (10-20); BUN (Urea Nitrogen) 23 mg/dL (8.4-25.7); Bilirubin, Direct 0.2 mg/dL (0.1-0.3); Bilirubin, Total 0.4 mg/dL (0.2-1.2); Calc. Creatinine Clearance 0 mL/min (70-130); Calcium 8.3 mg/dL (7.8-10.44); Carbon Dioxide 23 mmol/L (23-31); Cardiac Risk 3.9 (Less than 4.5); Chloride 112 mmol/L (98-107); Cholesterol 90 mg/dl (< 200 Desired); Globulin 2.6 g/dL (2.4-3.5); Glucose 121 mg/dL (80-115); HDL Cholesterol 23 mg/dL (>60 Neg Risk); LDL Cholesterol, Calculated 46 mg/dL; Phosphorus 2.9 mg/dL (2.3-4.7); Protein, Total 6.4 g/dL (5.8-8.1); Sodium 143 mmol/L (136-145); Triglycerides 104 mg/dL (Less than 150); Uric Acid 5.7 mg/dL (3.5-7.2)
[2020-09-10 17:28] LABS: LDH 316 U/L (125-220)
[2020-09-10 17:30] LABS: T4 7.1 ug/dL (4.87-11.72)
== END 2020-09-10 07:51 | disposition home or self-care (01) ==
LOC: MADLAB 07:50
PROVIDERS: ATTEND Internal Medicine Cardiovascular Disease
DX: C34.02 Malignant neoplasm of left main bronchus (principal); D69.59 Other secondary thrombocytopenia
CPT/HCPCS: 36415; 80053; 80061; 82248; 83615; 84100; 84436; 84443; 84550; 85027

== ENCOUNTER 2020-09-30 08:25 | Outpatient (CLI) | payer BC ==
[2020-09-30 09:06] LABS: Hemoglobin 16.7 g/dL (14.0-18.0); Mean Corpuscular HGB CONC 32.6 g/dL (32.0-36.0); Mean Corpuscular Hemoglobin 31.8 pg (27.0-31.0); Mean Corpuscular Volume 97.5 fL (78.0-98.0); Platelet Count 135 thou/uL (130-400); RBC Distribution Width 12.8 % (11.5-14.5); Red Blood Cell (RBC) Count 5.26 mill/uL (4.70-6.10); White Blood Cell (WBC) Count 7.2 thou/uL (4.8-10.8)
[2020-09-30 09:16] LABS: ALT (SGPT) 20 U/L (8-55); AST (SGOT) 20 U/L (5-34); Albumin 4.1 g/dL (3.4-4.8); Alkaline Phosphatase 90 U/L (40-110); Anion Gap 13 mmol/L (10-20); BUN (Urea Nitrogen) 21 mg/dL (8.4-25.7); Bilirubin, Direct 0.3 mg/dL (0.1-0.3); Bilirubin, Total 0.6 mg/dL (0.2-1.2); Calc. Creatinine Clearance 0 mL/min (70-130); Calcium 8.8 mg/dL (7.8-10.44); Carbon Dioxide 23 mmol/L (23-31); Chloride 108 mmol/L (98-107); Globulin 2.7 g/dL (2.4-3.5); Glucose 113 mg/dL (80-115); Phosphorus 3.1 mg/dL (2.3-4.7); Potassium 4.2 mmol/L (3.5-5.1); Protein, Total 6.8 g/dL (5.8-8.1); Sodium 140 mmol/L (136-145); Uric Acid 5.4 mg/dL (3.5-7.2)
[2020-09-30 09:36] LABS: Thyroid Stimulating Hormone 0.7389 uIU/mL (0.35-4.94)
[2020-09-30 17:33] LABS: LDH 274 U/L (125-220)
[2020-09-30 17:46] LABS: T4 8.4 ug/dL (4.87-11.72)
== END 2020-09-30 08:26 | disposition home or self-care (01) ==
LOC: MADLAB 08:25
PROVIDERS: ATTEND Internal Medicine
DX: C34.02 Malignant neoplasm of left main bronchus (principal); D69.59 Other secondary thrombocytopenia
CPT/HCPCS: 36415; 80053; 82248; 83615; 84100; 84436; 84443; 84550; 85027

== ENCOUNTER 2020-10-21 07:39 | Outpatient (CLI) | payer BC ==
[2020-10-21 08:00] LABS: #Basophils 0.1 thou/uL (0.0-0.2); #Eosinphils 0.3 thou/uL (0.0-0.7); #Lymphocytes 1.8 thou/uL (1.20-3.40); #Monocytes 0.6 thou/uL (0.11-0.59); #Neutrophils 5.6 thou/uL (1.40-6.50); %Basophils 1.4 % (0.0-1.0); %Eosinophils 3.6 % (0.0-10.0); %Monocytes 7.3 % (0.0-10.0); %Neutrophils 66.8 % (42.0-75.0); Hemoglobin 16.2 g/dL (14.0-18.0); Mean Corpuscular HGB CONC 31.1 g/dL (32.0-36.0); Mean Corpuscular Hemoglobin 30.7 pg (27.0-31.0); Mean Corpuscular Volume 98.7 fL (78.0-98.0); Platelet Count 150 thou/uL (130-400); RBC Distribution Width 13.2 % (11.5-14.5); Red Blood Cell (RBC) Count 5.28 mill/uL (4.70-6.10); White Blood Cell (WBC) Count 8.4 thou/uL (4.8-10.8)
[2020-10-21 17:28] LABS: ALT (SGPT) 20 U/L (8-55); AST (SGOT) 19 U/L (5-34); Alkaline Phosphatase 99 U/L (40-110); Anion Gap 12 mmol/L (10-20); BUN (Urea Nitrogen) 24 mg/dL (8.4-25.7); Bilirubin, Direct 0.3 mg/dL (0.1-0.3); Bilirubin, Total 0.6 mg/dL (0.2-1.2); Calc. Creatinine Clearance 0 mL/min (70-130); Calcium 8.9 mg/dL (7.8-10.44); Carbon Dioxide 25 mmol/L (23-31); Chloride 108 mmol/L (98-107); Globulin 2.6 g/dL (2.4-3.5); Glucose 118 mg/dL (80-115); LDH 291 U/L (125-220); Phosphorus 3.9 mg/dL (2.3-4.7); Potassium 4.3 mmol/L (3.5-5.1); Protein, Total 6.6 g/dL (5.8-8.1); Sodium 141 mmol/L (136-145); Uric Acid 5.5 mg/dL (3.5-7.2)
[2020-10-21 17:44] LABS: T4 8.1 ug/dL (4.87-11.72); Thyroid Stimulating Hormone 1.4647 uIU/mL (0.35-4.94)
== END 2020-10-21 07:40 | disposition home or self-care (01) ==
LOC: MADLAB 07:39
PROVIDERS: ATTEND Internal Medicine Hematology & Oncology
DX: C34.02 Malignant neoplasm of left main bronchus (principal); D69.59 Other secondary thrombocytopenia
CPT/HCPCS: 36415; 80053; 82248; 83615; 84100; 84436; 84443; 84550; 85025

== ENCOUNTER 2020-11-19 10:11 | Emergency (ER) | payer BC ==
[2020-11-19] MEDS ORDERED: Lidocaine 1% w/Epinephrine 1:100K 20 ML VIAL ONE (11:03)
[2020-11-19] MEDS ORDERED: Bacitracin 1 PK ONE (11:59)
== END 2020-11-19 12:17 | disposition home or self-care (01) ==
LOC: MADERS 10:11
DX: S66.321A Laceration of extensor muscle, fascia and tendon of left index finger at wrist and hand level, initial encounter (principal); K21.9 Gastro-esophageal reflux disease without esophagitis; I10 Essential (primary) hypertension; E78.5 Hyperlipidemia, unspecified; E66.9 Obesity, unspecified; G47.30 Sleep apnea, unspecified; Z79.82 Long term (current) use of aspirin; Z79.899 Other long term (current) drug therapy; W26.0XXA Contact with knife, initial encounter
CPT/HCPCS: 26418

== ENCOUNTER 2020-12-10 07:34 | Outpatient (CLI) | payer BC ==
[2020-12-10 07:51] LABS: Hemoglobin 15.7 g/dL (14.0-18.0); Mean Corpuscular HGB CONC 31.4 g/dL (32.0-36.0); Mean Corpuscular Hemoglobin 30.5 pg (27.0-31.0); Mean Corpuscular Volume 97.2 fL (78.0-98.0); Mean Platelet Volume 8.4 fL (7.4-10.4); Platelet Count 129 thou/uL (130-400); RBC Distribution Width 13.4 % (11.5-14.5); Red Blood Cell (RBC) Count 5.13 mill/uL (4.70-6.10); White Blood Cell (WBC) Count 7.1 thou/uL (4.8-10.8)
[2020-12-10 08:07] LABS: ALT (SGPT) 26 U/L (8-55); AST (SGOT) 30 U/L (5-34); Albumin 3.9 g/dL (3.4-4.8); Alkaline Phosphatase 88 U/L (40-110); Anion Gap 14 mmol/L (10-20); BUN (Urea Nitrogen) 24 mg/dL (8.4-25.7); Bilirubin, Direct 0.3 mg/dL (0.1-0.3); Bilirubin, Total 0.5 mg/dL (0.2-1.2); Calc. Creatinine Clearance 0 mL/min (70-130); Calcium 8.8 mg/dL (7.8-10.44); Carbon Dioxide 23 mmol/L (23-31); Chloride 110 mmol/L (98-107); Globulin 2.7 g/dL (2.4-3.5); Glucose 112 mg/dL (80-115); Phosphorus 3.4 mg/dL (2.3-4.7); Potassium 3.9 mmol/L (3.5-5.1); Protein, Total 6.6 g/dL (5.8-8.1); Sodium 143 mmol/L (136-145); Uric Acid 5.6 mg/dL (3.5-7.2)
[2020-12-10 08:26] LABS: Thyroid Stimulating Hormone 0.897 uIU/mL (0.35-4.94)
[2020-12-10 12:04] LABS: LDH 274 U/L (125-220)
[2020-12-10 12:25] LABS: T4 7.5 ug/dL (4.87-11.72)
== END 2020-12-10 07:35 | disposition home or self-care (01) ==
LOC: MADLAB 07:34
PROVIDERS: ATTEND Internal Medicine Hematology & Oncology
DX: C34.02 Malignant neoplasm of left main bronchus (principal)
CPT/HCPCS: 36415; 80053; 82248; 83615; 84100; 84436; 84443; 84550; 85027

== ENCOUNTER 2021-03-17 08:34 | Outpatient (CLI) | payer BC ==
[2021-03-17 08:54] LABS: Hemoglobin 17.6 g/dL (14.0-18.0); Mean Corpuscular HGB CONC 31.2 g/dL (32.0-36.0); Mean Corpuscular Hemoglobin 30.9 pg (27.0-31.0); Mean Platelet Volume 8.2 fL (7.4-10.4); Platelet Count 141 thou/uL (130-400); RBC Distribution Width 13.2 % (11.5-14.5); White Blood Cell (WBC) Count 8.5 thou/uL (4.8-10.8)
[2021-03-17 09:06] LABS: ALT (SGPT) 25 U/L (8-55); AST (SGOT) 17 U/L (5-34); Albumin 3.8 g/dL (3.4-4.8); Alkaline Phosphatase 84 U/L (40-110); Anion Gap 14 mmol/L (10-20); BUN (Urea Nitrogen) 23 mg/dL (8.4-25.7); Bilirubin, Direct 0.3 mg/dL (0.1-0.3); Bilirubin, Total 0.6 mg/dL (0.2-1.2); Calc. Creatinine Clearance 0 mL/min (70-130); Calcium 9.1 mg/dL (7.8-10.44); Carbon Dioxide 23 mmol/L (23-31); Chloride 107 mmol/L (98-107); Globulin 2.9 g/dL (2.4-3.5); Glucose 111 mg/dL (80-115); Phosphorus 3.3 mg/dL (2.3-4.7); Potassium 3.9 mmol/L (3.5-5.1); Protein, Total 6.7 g/dL (5.8-8.1); Sodium 140 mmol/L (136-145); Uric Acid 5.4 mg/dL (3.5-7.2)
[2021-03-17 09:21] LABS: Thyroid Stimulating Hormone 1.1986 uIU/mL (0.35-4.94)
[2021-03-17 17:48] LABS: LDH 264 U/L (125-220)
[2021-03-17 18:07] LABS: T4 8.2 ug/dL (4.87-11.72)
== END 2021-03-17 08:35 | disposition home or self-care (01) ==
LOC: MADLAB 08:34
PROVIDERS: ATTEND Internal Medicine Hematology & Oncology
DX: C34.02 Malignant neoplasm of left main bronchus (principal)
CPT/HCPCS: 36415; 80053; 82248; 83615; 84100; 84436; 84443; 84550; 85027

== ENCOUNTER 2021-04-07 08:05 | Outpatient (CLI) | payer BC ==
[2021-04-07 08:45] LABS: Hemoglobin 17.5 g/dL (14.0-18.0); Mean Corpuscular HGB CONC 31.4 g/dL (32.0-36.0); Mean Corpuscular Hemoglobin 30.5 pg (27.0-31.0); Mean Corpuscular Volume 97.3 fL (78.0-98.0); Mean Platelet Volume 6.9 fL (7.4-10.4); Platelet Count 134 thou/uL (130-400); RBC Distribution Width 13.2 % (11.5-14.5); Red Blood Cell (RBC) Count 5.74 mill/uL (4.70-6.10); White Blood Cell (WBC) Count 8.5 thou/uL (4.8-10.8)
[2021-04-07 09:00] LABS: ALT (SGPT) 21 U/L (8-55); AST (SGOT) 17 U/L (5-34); Albumin 3.9 g/dL (3.4-4.8); Alkaline Phosphatase 83 U/L (40-110); Anion Gap 10 mmol/L (10-20); BUN (Urea Nitrogen) 22 mg/dL (8.4-25.7); Bilirubin, Direct 0.3 mg/dL (0.1-0.3); Bilirubin, Total 0.7 mg/dL (0.2-1.2); Calc. Creatinine Clearance 0 mL/min (70-130); Calcium 9.3 mg/dL (7.8-10.44); Carbon Dioxide 23 mmol/L (23-31); Chloride 110 mmol/L (98-107); Globulin 2.9 g/dL (2.4-3.5); Glucose 108 mg/dL (80-115); Phosphorus 3.2 mg/dL (2.3-4.7); Potassium 4.3 mmol/L (3.5-5.1); Protein, Total 6.8 g/dL (5.8-8.1); Sodium 139 mmol/L (136-145); Uric Acid 6.2 mg/dL (3.5-7.2)
[2021-04-07 09:19] LABS: Thyroid Stimulating Hormone 0.8777 uIU/mL (0.35-4.94)
[2021-04-07 18:37] LABS: LDH 282 U/L (125-220)
[2021-04-07 19:09] LABS: T4 7.7 ug/dL (4.87-11.72)
== END 2021-04-07 08:06 | disposition home or self-care (01) ==
LOC: MADLAB 08:05
PROVIDERS: ATTEND Internal Medicine Hematology & Oncology
DX: C34.02 Malignant neoplasm of left main bronchus (principal)
CPT/HCPCS: 36415; 80053; 82248; 83615; 84100; 84436; 84443; 84550; 85027

== ENCOUNTER 2021-04-29 13:19 | Outpatient (CLI) | payer MEDICARE, BC ==
[2021-04-29 13:42] LABS: Hemoglobin 17.7 g/dL (14.0-18.0); Mean Corpuscular HGB CONC 31.4 g/dL (32.0-36.0); Mean Corpuscular Hemoglobin 30.6 pg (27.0-31.0); Mean Corpuscular Volume 97.3 fL (78.0-98.0); Mean Platelet Volume 7.7 fL (7.4-10.4); Platelet Count 154 thou/uL (130-400); White Blood Cell (WBC) Count 11.3 thou/uL (4.8-10.8)
[2021-04-29 13:59] LABS: ALT (SGPT) 21 U/L (8-55); AST (SGOT) 18 U/L (5-34); Albumin 4.1 g/dL (3.4-4.8); Alkaline Phosphatase 85 U/L (40-110); Anion Gap 14 mmol/L (10-20); BUN (Urea Nitrogen) 23 mg/dL (8.4-25.7); Bilirubin, Direct 0.3 mg/dL (0.1-0.3); Bilirubin, Total 0.6 mg/dL (0.2-1.2); Calc. Creatinine Clearance 0 mL/min (70-130); Calcium 8.8 mg/dL (7.8-10.44); Carbon Dioxide 23 mmol/L (23-31); Chloride 108 mmol/L (98-107); Globulin 2.9 g/dL (2.4-3.5); Glucose 128 mg/dL (80-115); Phosphorus 3.7 mg/dL (2.3-4.7); Potassium 4.2 mmol/L (3.5-5.1); Sodium 141 mmol/L (136-145); Uric Acid 5.1 mg/dL (3.5-7.2)
[2021-04-29 14:13] LABS: Thyroid Stimulating Hormone 0.5999 uIU/mL (0.35-4.94)
[2021-04-30 00:19] LABS: LDH 288 U/L (125-220)
== END 2021-04-29 13:20 | disposition home or self-care (01) ==
LOC: MADLAB 13:19
PROVIDERS: ATTEND Internal Medicine Hematology & Oncology
DX: C34.02 Malignant neoplasm of left main bronchus (principal)
CPT/HCPCS: 36415; 80053; 82248; 83615; 84100; 84436; 84443; 84550; 85027

== ENCOUNTER 2021-05-23 07:00 | Outpatient (CLI) | payer MEDICARE, BC ==
[2021-05-23 07:29] LABS: Hemoglobin 16.8 g/dL (14.0-18.0); Mean Corpuscular HGB CONC 31.7 g/dL (32.0-36.0); Mean Corpuscular Hemoglobin 30.4 pg (27.0-31.0); Mean Platelet Volume 7.3 fL (7.4-10.4); Platelet Count 137 thou/uL (130-400); Red Blood Cell (RBC) Count 5.51 mill/uL (4.70-6.10); White Blood Cell (WBC) Count 8.1 thou/uL (4.8-10.8)
[2021-05-23 07:46] LABS: ALT (SGPT) 22 U/L (8-55); AST (SGOT) 18 U/L (5-34); Albumin 3.9 g/dL (3.4-4.8); Alkaline Phosphatase 85 U/L (40-110); Anion Gap 12 mmol/L (10-20); BUN (Urea Nitrogen) 17 mg/dL (8.4-25.7); Bilirubin, Direct 0.4 mg/dL (0.1-0.3); Calc. Creatinine Clearance 0 mL/min (70-130); Calcium 8.8 mg/dL (7.8-10.44); Carbon Dioxide 23 mmol/L (23-31); Chloride 108 mmol/L (98-107); Globulin 2.9 g/dL (2.4-3.5); Glucose 111 mg/dL (80-115); Phosphorus 3.6 mg/dL (2.3-4.7); Potassium 4.1 mmol/L (3.5-5.1); Protein, Total 6.8 g/dL (5.8-8.1); Sodium 139 mmol/L (136-145); Uric Acid 5.1 mg/dL (3.5-7.2)
[2021-05-23 08:08] LABS: Thyroid Stimulating Hormone 0.8344 uIU/mL (0.35-4.94)
[2021-05-23 11:41] LABS: LDH 300 U/L (125-220)
[2021-05-23 11:56] LABS: T4 7.7 ug/dL (4.87-11.72)
== END 2021-05-23 07:01 | disposition home or self-care (01) ==
LOC: MADLABBHPM 07:00
PROVIDERS: ATTEND Internal Medicine Medical Oncology
DX: C34.02 Malignant neoplasm of left main bronchus (principal)
CPT/HCPCS: 36415; 80053; 82248; 83615; 84100; 84436; 84443; 84550; 85027

== ENCOUNTER 2021-06-10 08:18 | Outpatient (CLI) | payer MEDICARE, BC ==
[2021-06-10 09:27] LABS: ALT (SGPT) 26 U/L (8-55); AST (SGOT) 19 U/L (5-34); Alkaline Phosphatase 85 U/L (40-110); Anion Gap 11 mmol/L (10-20); BUN (Urea Nitrogen) 24 mg/dL (8.4-25.7); Bilirubin, Total 0.5 mg/dL (0.2-1.2); Calc. Creatinine Clearance 0 mL/min (70-130); Calcium 9.3 mg/dL (7.8-10.44); Carbon Dioxide 27 mmol/L (23-31); Chloride 106 mmol/L (98-107); Globulin 2.8 g/dL (2.4-3.5); Glucose 112 mg/dL (80-115); Potassium 4.4 mmol/L (3.5-5.1); Protein, Total 6.8 g/dL (5.8-8.1); Sodium 140 mmol/L (136-145)
[2021-06-10 09:47] LABS: Thyroid Stimulating Hormone 0.9399 uIU/mL (0.35-4.94)
[2021-06-10 09:59] LABS: #Basophils 0.1 thou/uL (0.0-0.2); #Eosinphils 0.3 thou/uL (0.0-0.7); #Lymphocytes 1.7 thou/uL (1.20-3.40); #Monocytes 0.6 thou/uL (0.11-0.59); #Neutrophils 4.9 thou/uL (1.40-6.50); %Basophils 1.2 % (0.0-1.0); %Eosinophils 3.4 % (0.0-10.0); %Lymphocytes 22.9 % (21.0-51.0); %Monocytes 7.7 % (0.0-10.0); %Neutrophils 64.8 % (42.0-75.0); Hemoglobin 17.1 g/dL (14.0-18.0); Mean Corpuscular HGB CONC 31.4 g/dL (32.0-36.0); Mean Corpuscular Hemoglobin 30.3 pg (27.0-31.0); Mean Corpuscular Volume 96.4 fL (78.0-98.0); Platelet Count 139 thou/uL (130-400); Red Blood Cell (RBC) Count 5.65 mill/uL (4.70-6.10); White Blood Cell (WBC) Count 7.5 thou/uL (4.8-10.8)
[2021-06-10 16:01] LABS: T4 7.7 ug/dL (4.87-11.72)
== END 2021-06-10 08:19 | disposition home or self-care (01) ==
LOC: MADLAB 08:18
PROVIDERS: ATTEND Internal Medicine Hematology & Oncology
DX: C34.02 Malignant neoplasm of left main bronchus (principal)
CPT/HCPCS: 36415; 80053; 84436; 84443; 85025

== ENCOUNTER 2021-06-30 15:49 | Outpatient (CLI) | payer MEDICARE, BC ==
[2021-06-30 16:18] LABS: #Basophils 0.1 thou/uL (0.0-0.2); #Eosinphils 0.2 thou/uL (0.0-0.7); #Monocytes 0.8 thou/uL (0.11-0.59); #Neutrophils 10.4 thou/uL (1.40-6.50); %Basophils 0.8 % (0.0-1.0); %Eosinophils 1.2 % (0.0-10.0); %Lymphocytes 15.1 % (21.0-51.0); %Monocytes 5.6 % (0.0-10.0); %Neutrophils 77.3 % (42.0-75.0); Hemoglobin 17.1 g/dL (14.0-18.0); Mean Corpuscular HGB CONC 31.9 g/dL (32.0-36.0); Mean Corpuscular Hemoglobin 30.4 pg (27.0-31.0); Mean Corpuscular Volume 95.2 fL (78.0-98.0); Mean Platelet Volume 7.1 fL (7.4-10.4); Platelet Count 156 thou/uL (130-400); RBC Distribution Width 12.8 % (11.5-14.5); Red Blood Cell (RBC) Count 5.64 mill/uL (4.70-6.10); White Blood Cell (WBC) Count 13.5 thou/uL (4.8-10.8)
[2021-06-30 16:34] LABS: ALT (SGPT) 27 U/L (8-55); AST (SGOT) 19 U/L (5-34); Albumin 4.1 g/dL (3.4-4.8); Alkaline Phosphatase 79 U/L (40-110); Anion Gap 14 mmol/L (10-20); BUN (Urea Nitrogen) 22 mg/dL (8.4-25.7); Bilirubin, Direct 0.3 mg/dL (0.1-0.3); Bilirubin, Total 0.7 mg/dL (0.2-1.2); Calc. Creatinine Clearance 0 mL/min (70-130); Calcium 9.5 mg/dL (7.8-10.44); Carbon Dioxide 27 mmol/L (23-31); Chloride 105 mmol/L (98-107); Globulin 3.2 g/dL (2.4-3.5); Glucose 108 mg/dL (80-115); Phosphorus 3.2 mg/dL (2.3-4.7); Potassium 4.2 mmol/L (3.5-5.1); Protein, Total 7.3 g/dL (5.8-8.1); Sodium 142 mmol/L (136-145); Uric Acid 5.5 mg/dL (3.5-7.2)
[2021-06-30 16:51] LABS: Thyroid Stimulating Hormone 0.7332 uIU/mL (0.35-4.94)
[2021-06-30 21:02] LABS: LDH 311 U/L (125-220)
[2021-06-30 21:24] LABS: T4 8.5 ug/dL (4.87-11.72)
[2021-06-30 21:56] LABS: Follow-up Chemistry Comp? YES; Follow-up Result - Chemistry REPORT FAXED
== END 2021-06-30 15:50 | disposition home or self-care (01) ==
LOC: MADLAB 15:49
PROVIDERS: ATTEND Internal Medicine Hematology & Oncology
DX: C34.02 Malignant neoplasm of left main bronchus (principal); B02.9 Zoster without complications; D69.59 Other secondary thrombocytopenia
CPT/HCPCS: 36415; 80053; 82248; 83615; 84100; 84436; 84443; 84550; 85025

== ENCOUNTER 2021-07-21 14:35 | Outpatient (CLI) | payer MEDICARE, BC ==
[2021-07-21 14:57] LABS: Hemoglobin 17.4 g/dL (14.0-18.0); Mean Corpuscular HGB CONC 31.9 g/dL (32.0-36.0); Mean Corpuscular Hemoglobin 30.2 pg (27.0-31.0); Mean Corpuscular Volume 94.7 fL (78.0-98.0); Mean Platelet Volume 7.4 fL (7.4-10.4); Platelet Count 149 thou/uL (130-400); RBC Distribution Width 12.7 % (11.5-14.5); Red Blood Cell (RBC) Count 5.77 mill/uL (4.70-6.10); White Blood Cell (WBC) Count 8.2 thou/uL (4.8-10.8)
[2021-07-21 15:09] LABS: ALT (SGPT) 29 U/L (8-55); AST (SGOT) 23 U/L (5-34); Albumin 4.2 g/dL (3.4-4.8); Alkaline Phosphatase 81 U/L (40-110); Anion Gap 15 mmol/L (10-20); BUN (Urea Nitrogen) 23 mg/dL (8.4-25.7); Bilirubin, Direct 0.3 mg/dL (0.1-0.3); Bilirubin, Total 0.6 mg/dL (0.2-1.2); Calc. Creatinine Clearance 0 mL/min (70-130); Calcium 8.9 mg/dL (7.8-10.44); Carbon Dioxide 21 mmol/L (23-31); Chloride 107 mmol/L (98-107); Globulin 3.2 g/dL (2.4-3.5); Glucose 86 mg/dL (80-115); Phosphorus 3.8 mg/dL (2.3-4.7); Potassium 4.2 mmol/L (3.5-5.1); Protein, Total 7.4 g/dL (5.8-8.1); Sodium 139 mmol/L (136-145); Uric Acid 5.6 mg/dL (3.5-7.2)
[2021-07-21 21:35] LABS: LDH 276 U/L (125-220)
[2021-07-21 21:56] LABS: T4 8.1 ug/dL (4.87-11.72)
== END 2021-07-21 14:36 | disposition home or self-care (01) ==
LOC: MADLAB 14:35
PROVIDERS: ATTEND Internal Medicine Hematology & Oncology
DX: C34.02 Malignant neoplasm of left main bronchus (principal); B02.9 Zoster without complications; D69.59 Other secondary thrombocytopenia
CPT/HCPCS: 36415; 80053; 82248; 83615; 84100; 84436; 84443; 84550; 85027

== ENCOUNTER 2021-08-11 08:19 | Outpatient (CLI) | payer MEDICARE, BC ==
[2021-08-11 10:23] LABS: Hemoglobin 16.9 g/dL (14.0-18.0); Mean Corpuscular HGB CONC 31.9 g/dL (32.0-36.0); Mean Corpuscular Hemoglobin 30.2 pg (27.0-31.0); Mean Corpuscular Volume 94.7 fL (78.0-98.0); Platelet Count 156 thou/uL (130-400); RBC Distribution Width 12.8 % (11.5-14.5); Red Blood Cell (RBC) Count 5.61 mill/uL (4.70-6.10); White Blood Cell (WBC) Count 7.1 thou/uL (4.8-10.8)
[2021-08-11 10:58] LABS: ALT (SGPT) 19 U/L (8-55); AST (SGOT) 21 U/L (5-34); Alkaline Phosphatase 80 U/L (40-110); Anion Gap 12 mmol/L (10-20); BUN (Urea Nitrogen) 25 mg/dL (8.4-25.7); Bilirubin, Direct 0.4 mg/dL (0.1-0.3); Bilirubin, Total 0.7 mg/dL (0.2-1.2); Calc. Creatinine Clearance 0 mL/min (70-130); Calcium 9.4 mg/dL (7.8-10.44); Carbon Dioxide 27 mmol/L (23-31); Chloride 105 mmol/L (98-107); Globulin 3.1 g/dL (2.4-3.5); Glucose 115 mg/dL (80-115); Potassium 4.3 mmol/L (3.5-5.1); Protein, Total 7.1 g/dL (5.8-8.1); Sodium 140 mmol/L (136-145)
[2021-08-11 11:22] LABS: Thyroid Stimulating Hormone 0.8933 uIU/mL (0.35-4.94)
[2021-08-11 16:27] LABS: LDH 280 U/L (125-220)
[2021-08-11 16:47] LABS: T4 7.9 ug/dL (4.87-11.72)
== END 2021-08-11 08:20 | disposition home or self-care (01) ==
LOC: MADLAB 08:19
PROVIDERS: ATTEND Internal Medicine Hematology & Oncology
DX: C34.02 Malignant neoplasm of left main bronchus (principal); D69.59 Other secondary thrombocytopenia; B02.9 Zoster without complications
CPT/HCPCS: 36415; 80053; 82248; 83615; 84100; 84436; 84443; 84550; 85027

== ENCOUNTER 2021-09-12 17:51 | Outpatient (CLI) | payer BC ==
[2021-09-12 18:38] LABS: #Basophils 0.1 thou/uL (0.0-0.2); #Monocytes 0.8 thou/uL (0.11-0.59); #Neutrophils 8.4 thou/uL (1.40-6.50); %Basophils 0.9 % (0.0-1.0); %Monocytes 6.8 % (0.0-10.0); %Neutrophils 74.3 % (42.0-75.0); Hemoglobin 17.1 g/dL (14.0-18.0); Mean Corpuscular HGB CONC 32.8 g/dL (32.0-36.0); Mean Corpuscular Hemoglobin 30.6 pg (27.0-31.0); Mean Corpuscular Volume 93.3 fL (78.0-98.0); Mean Platelet Volume 6.3 fL (7.4-10.4); Platelet Count 159 thou/uL (130-400); RBC Distribution Width 12.8 % (11.5-14.5); Red Blood Cell (RBC) Count 5.58 mill/uL (4.70-6.10); White Blood Cell (WBC) Count 11.3 thou/uL (4.8-10.8)
[2021-09-12 18:52] LABS: ALT (SGPT) 27 U/L (8-55); AST (SGOT) 20 U/L (5-34); Albumin 4.1 g/dL (3.4-4.8); Alkaline Phosphatase 80 U/L (40-110); Anion Gap 13 mmol/L (10-20); BUN (Urea Nitrogen) 24 mg/dL (8.4-25.7); Bilirubin, Direct 0.2 mg/dL (0.1-0.3); Bilirubin, Total 0.6 mg/dL (0.2-1.2); Calc. Creatinine Clearance 0 mL/min (70-130); Calcium 9.4 mg/dL (7.8-10.44); Carbon Dioxide 28 mmol/L (23-31); Chloride 107 mmol/L (98-107); Globulin 3.1 g/dL (2.4-3.5); Glucose 76 mg/dL (80-115); Phosphorus 3.6 mg/dL (2.3-4.7); Potassium 4.2 mmol/L (3.5-5.1); Protein, Total 7.2 g/dL (5.8-8.1); Sodium 144 mmol/L (136-145); Uric Acid 5.9 mg/dL (3.5-7.2)
[2021-09-12 19:14] LABS: Thyroid Stimulating Hormone 0.9799 uIU/mL (0.35-4.94)
[2021-09-13 11:38] LABS: LDH 310 U/L (125-220)
[2021-09-13 11:51] LABS: T4 7.4 ug/dL (4.87-11.72)
[2021-09-13 14:16] LABS: Follow-up Chemistry Comp? YES; Follow-up Result - Chemistry REPORT FAXED
== END 2021-09-12 17:52 | disposition home or self-care (01) ==
LOC: MADLAB 17:51
PROVIDERS: ATTEND Internal Medicine Hematology & Oncology
DX: C34.02 Malignant neoplasm of left main bronchus (principal); D69.59 Other secondary thrombocytopenia; B02.9 Zoster without complications
CPT/HCPCS: 36415; 80053; 82248; 83615; 84100; 84436; 84443; 84550; 85025

== ENCOUNTER 2021-09-29 07:11 | Outpatient (CLI) | payer MEDICARE, BC ==
[2021-09-29 07:59] LABS: ALT (SGPT) 20 U/L (8-55); AST (SGOT) 19 U/L (5-34); Albumin 4.2 g/dL (3.4-4.8); Alkaline Phosphatase 83 U/L (40-110); Anion Gap 15 mmol/L (10-20); BUN (Urea Nitrogen) 23 mg/dL (8.4-25.7); Bilirubin, Direct 0.2 mg/dL (0.1-0.3); Bilirubin, Total 0.5 mg/dL (0.2-1.2); Calc. Creatinine Clearance 0 mL/min (70-130); Calcium 9.3 mg/dL (7.8-10.44); Carbon Dioxide 27 mmol/L (23-31); Chloride 105 mmol/L (98-107); Globulin 3.2 g/dL (2.4-3.5); Glucose 95 mg/dL (80-115); Phosphorus 3.3 mg/dL (2.3-4.7); Potassium 4.8 mmol/L (3.5-5.1); Protein, Total 7.4 g/dL (5.8-8.1); Sodium 142 mmol/L (136-145); Uric Acid 5.2 mg/dL (3.5-7.2)
[2021-09-29 08:41] LABS: Thyroid Stimulating Hormone 1.2735 uIU/mL (0.35-4.94)
[2021-09-29 09:54] LABS: Hemoglobin 16.8 g/dL (14.0-18.0); Mean Corpuscular HGB CONC 29.8 g/dL (32.0-36.0); Mean Corpuscular Hemoglobin 30.4 pg (27.0-31.0); Mean Corpuscular Volume 101.7 fL (78.0-98.0); Mean Platelet Volume 8.4 fL (7.4-10.4); Platelet Count 160 thou/uL (130-400); RBC Distribution Width 13.9 % (11.5-14.5); Red Blood Cell (RBC) Count 5.54 mill/uL (4.70-6.10)
[2021-09-29 11:33] LABS: LDH 273 U/L (125-220)
[2021-09-29 11:55] LABS: T4 8.5 ug/dL (4.87-11.72)
== END 2021-09-29 07:12 | disposition home or self-care (01) ==
LOC: MADLAB 07:11
PROVIDERS: ATTEND Internal Medicine Hematology & Oncology
DX: C34.02 Malignant neoplasm of left main bronchus (principal); D69.59 Other secondary thrombocytopenia; B02.9 Zoster without complications
CPT/HCPCS: 36415; 80053; 82248; 83615; 84100; 84436; 84443; 84550; 85027

== ENCOUNTER 2021-10-20 07:11 | Outpatient (CLI) | payer MEDICARE, BC ==
[2021-10-20 07:58] LABS: ALT (SGPT) 22 U/L (8-55); AST (SGOT) 21 U/L (5-34); Alkaline Phosphatase 81 U/L (40-110); Anion Gap 14 mmol/L (10-20); BUN (Urea Nitrogen) 18 mg/dL (8.4-25.7); Bilirubin, Direct 0.3 mg/dL (0.1-0.3); Bilirubin, Total 0.7 mg/dL (0.2-1.2); Calc. Creatinine Clearance 0 mL/min (70-130); Calcium 8.8 mg/dL (7.8-10.44); Carbon Dioxide 24 mmol/L (23-31); Chloride 107 mmol/L (98-107); Globulin 2.8 g/dL (2.4-3.5); Glucose 105 mg/dL (80-115); Phosphorus 2.5 mg/dL (2.3-4.7); Potassium 4.2 mmol/L (3.5-5.1); Protein, Total 6.8 g/dL (5.8-8.1); Sodium 141 mmol/L (136-145)
[2021-10-20 08:17] LABS: #Basophils 0.1 thou/uL (0.0-0.2); #Eosinphils 0.2 thou/uL (0.0-0.7); #Lymphocytes 1.7 thou/uL (1.20-3.40); #Monocytes 0.6 thou/uL (0.11-0.59); #Neutrophils 4.9 thou/uL (1.40-6.50); %Basophils 1.2 % (0.0-1.0); %Eosinophils 3.3 % (0.0-10.0); %Lymphocytes 22.1 % (21.0-51.0); %Monocytes 7.3 % (0.0-10.0); %Neutrophils 66.1 % (42.0-75.0); Hemoglobin 16.4 g/dL (14.0-18.0); Mean Corpuscular HGB CONC 31.9 g/dL (32.0-36.0); Mean Corpuscular Volume 94.1 fL (78.0-98.0); Mean Platelet Volume 8.8 fL (7.4-10.4); Platelet Count 138 thou/uL (130-400); RBC Distribution Width 13.1 % (11.5-14.5); Red Blood Cell (RBC) Count 5.45 mill/uL (4.70-6.10); White Blood Cell (WBC) Count 7.4 thou/uL (4.8-10.8)
[2021-10-20 08:43] LABS: Thyroid Stimulating Hormone 0.9658 uIU/mL (0.35-4.94)
[2021-10-20 11:59] LABS: LDH 279 U/L (125-220)
[2021-10-20 12:18] LABS: T4 7.9 ug/dL (4.87-11.72)
== END 2021-10-20 07:12 | disposition home or self-care (01) ==
LOC: MADLAB 07:11
PROVIDERS: ATTEND Internal Medicine Hematology & Oncology
DX: C34.02 Malignant neoplasm of left main bronchus (principal); D69.59 Other secondary thrombocytopenia; B02.9 Zoster without complications
CPT/HCPCS: 36415; 80053; 82248; 83615; 84100; 84436; 84443; 84550; 85025

== ENCOUNTER 2021-11-10 13:49 | Outpatient (CLI) | payer MEDICARE, BC ==
[2021-11-10 14:15] LABS: Hemoglobin 16.5 g/dL (14.0-18.0); Mean Corpuscular HGB CONC 31.9 g/dL (32.0-36.0); Mean Corpuscular Hemoglobin 30.1 pg (27.0-31.0); Mean Corpuscular Volume 94.4 fL (78.0-98.0); Mean Platelet Volume 9.1 fL (7.4-10.4); Platelet Count 129 thou/uL (130-400); RBC Distribution Width 12.9 % (11.5-14.5); Red Blood Cell (RBC) Count 5.47 mill/uL (4.70-6.10); White Blood Cell (WBC) Count 7.9 thou/uL (4.8-10.8)
[2021-11-10 14:29] LABS: ALT (SGPT) 31 U/L (8-55); AST (SGOT) 24 U/L (5-34); Albumin 3.9 g/dL (3.4-4.8); Alkaline Phosphatase 75 U/L (40-110); Anion Gap 14 mmol/L (10-20); BUN (Urea Nitrogen) 23 mg/dL (8.4-25.7); Bilirubin, Direct 0.3 mg/dL (0.1-0.3); Bilirubin, Total 0.7 mg/dL (0.2-1.2); Calc. Creatinine Clearance 0 mL/min (70-130); Calcium 8.7 mg/dL (7.8-10.44); Carbon Dioxide 22 mmol/L (23-31); Chloride 108 mmol/L (98-107); Glucose 102 mg/dL (80-115); Phosphorus 3.5 mg/dL (2.3-4.7); Potassium 4.2 mmol/L (3.5-5.1); Protein, Total 6.9 g/dL (5.8-8.1); Sodium 140 mmol/L (136-145); Uric Acid 5.7 mg/dL (3.5-7.2)
[2021-11-10 15:12] LABS: Thyroid Stimulating Hormone 0.6581 uIU/mL (0.35-4.94)
[2021-11-10 21:35] LABS: LDH 303 U/L (125-220)
== END 2021-11-10 13:50 | disposition home or self-care (01) ==
LOC: MADLAB 13:49
PROVIDERS: ATTEND Internal Medicine Hematology & Oncology
DX: C34.02 Malignant neoplasm of left main bronchus (principal); D69.59 Other secondary thrombocytopenia; B02.9 Zoster without complications
CPT/HCPCS: 36415; 80053; 82248; 83615; 84100; 84436; 84443; 84550; 85027

== ENCOUNTER 2021-12-08 10:53 | Outpatient (CLI) | payer MEDICARE, BC ==
[2021-12-08 12:27] LABS: ALT (SGPT) 27 U/L (8-55); AST (SGOT) 22 U/L (5-34); Albumin 3.9 g/dL (3.4-4.8); Alkaline Phosphatase 77 U/L (40-110); Anion Gap 11 mmol/L (10-20); BUN (Urea Nitrogen) 24 mg/dL (8.4-25.7); Calc. Creatinine Clearance 0 mL/min (70-130); Calcium 9.1 mg/dL (7.8-10.44); Carbon Dioxide 27 mmol/L (23-31); Cardiac Risk 3.7 (Less than 4.5); Chloride 109 mmol/L (98-107); Cholesterol 93 mg/dl (< 200 Desired); Globulin 2.7 g/dL (2.4-3.5); Glucose 95 mg/dL (80-115); HDL Cholesterol 25 mg/dL (>60 Neg Risk); LDL Cholesterol, Calculated 42 mg/dL; Potassium 4.1 mmol/L (3.5-5.1); Protein, Total 6.6 g/dL (5.8-8.1); Sodium 143 mmol/L (136-145); Triglycerides 128 mg/dL (Less than 150); Uric Acid 6.5 mg/dL (3.5-7.2)
[2021-12-08 13:35] LABS: Thyroid Stimulating Hormone 0.596 uIU/mL (0.35-4.94)
[2021-12-08 16:12] LABS: T4 8.6 ug/dL (4.87-11.72)
== END 2021-12-08 10:54 | disposition home or self-care (01) ==
LOC: MADLAB 10:53
PROVIDERS: ATTEND Internal Medicine Cardiovascular Disease
DX: E78.00 Pure hypercholesterolemia, unspecified (principal); C34.02 Malignant neoplasm of left main bronchus; D69.59 Other secondary thrombocytopenia; B02.9 Zoster without complications
CPT/HCPCS: 36415; 80053; 80061; 83615; 84436; 84443; 84550

== ENCOUNTER 2021-12-31 12:03 | Outpatient (CLI) | payer MEDICARE, BC ==
[2021-12-31 12:42] LABS: #Basophils 0.1 thou/uL (0.0-0.2); #Eosinphils 0.3 thou/uL (0.0-0.7); #Lymphocytes 1.8 thou/uL (1.20-3.40); #Monocytes 0.6 thou/uL (0.11-0.59); #Neutrophils 6.1 thou/uL (1.40-6.50); %Basophils 0.9 % (0.0-1.0); %Eosinophils 3.7 % (0.0-10.0); %Lymphocytes 20.3 % (21.0-51.0); %Monocytes 6.6 % (0.0-10.0); %Neutrophils 68.5 % (42.0-75.0); Hemoglobin 16.4 g/dL (14.0-18.0); Mean Corpuscular HGB CONC 32.4 g/dL (32.0-36.0); Mean Corpuscular Hemoglobin 30.2 pg (27.0-31.0); Mean Corpuscular Volume 93.1 fL (78.0-98.0); Mean Platelet Volume 8.6 fL (7.4-10.4); Platelet Count 131 thou/uL (130-400); RBC Distribution Width 12.9 % (11.5-14.5); Red Blood Cell (RBC) Count 5.42 mill/uL (4.70-6.10); White Blood Cell (WBC) Count 8.9 thou/uL (4.8-10.8)
[2021-12-31 13:00] LABS: ALT (SGPT) 19 U/L (8-55); AST (SGOT) 19 U/L (5-34); Albumin 3.8 g/dL (3.4-4.8); Alkaline Phosphatase 79 U/L (40-110); Anion Gap 14 mmol/L (10-20); BUN (Urea Nitrogen) 21 mg/dL (8.4-25.7); Bilirubin, Direct 0.3 mg/dL (0.1-0.3); Bilirubin, Total 0.7 mg/dL (0.2-1.2); Calc. Creatinine Clearance 0 mL/min (70-130); Calcium 8.7 mg/dL (7.8-10.44); Carbon Dioxide 23 mmol/L (23-31); Chloride 110 mmol/L (98-107); Estimated GFR 103; Globulin 2.8 g/dL (2.4-3.5); Glucose 105 mg/dL (80-115); Phosphorus 3.2 mg/dL (2.3-4.7); Potassium 4.3 mmol/L (3.5-5.1); Protein, Total 6.6 g/dL (5.8-8.1); Sodium 143 mmol/L (136-145); Uric Acid 6.2 mg/dL (3.5-7.2)
[2021-12-31 13:15] LABS: Thyroid Stimulating Hormone 0.8314 uIU/mL (0.35-4.94)
[2022-01-01 11:57] LABS: LDH 285 U/L (125-220)
[2022-01-01 12:17] LABS: T4 8.3 ug/dL (4.87-11.72)
[2022-01-01 12:28] LABS: Follow-up Chemistry Comp? YES; Follow-up Result - Chemistry REPORT FAXED
== END 2021-12-31 12:04 | disposition home or self-care (01) ==
LOC: MADLAB 12:03
PROVIDERS: ATTEND Internal Medicine Hematology & Oncology
DX: C34.02 Malignant neoplasm of left main bronchus (principal); I10 Essential (primary) hypertension; D69.59 Other secondary thrombocytopenia
CPT/HCPCS: 36415; 80053; 82248; 83615; 84100; 84436; 84443; 84550; 85025

== ENCOUNTER 2022-01-19 08:16 | Outpatient (CLI) | payer MEDICARE, BC ==
[2022-01-19 08:48] LABS: Mean Corpuscular HGB CONC 31.4 g/dL (32.0-36.0); Mean Corpuscular Hemoglobin 30.8 pg (27.0-31.0); Mean Corpuscular Volume 98.1 fL (78.0-98.0); Platelet Count 137 thou/uL (130-400); RBC Distribution Width 13.1 % (11.5-14.5); Red Blood Cell (RBC) Count 5.21 mill/uL (4.70-6.10); White Blood Cell (WBC) Count 7.8 thou/uL (4.8-10.8)
[2022-01-19 09:52] LABS: ALT (SGPT) 17 U/L (8-55); AST (SGOT) 16 U/L (5-34); Albumin 3.9 g/dL (3.4-4.8); Alkaline Phosphatase 74 U/L (40-110); Anion Gap 12 mmol/L (10-20); BUN (Urea Nitrogen) 22 mg/dL (8.4-25.7); Bilirubin, Direct 0.3 mg/dL (0.1-0.3); Bilirubin, Total 0.7 mg/dL (0.2-1.2); Calc. Creatinine Clearance 0 mL/min (70-130); Calcium 8.9 mg/dL (7.8-10.44); Carbon Dioxide 22 mmol/L (23-31); Chloride 109 mmol/L (98-107); Estimated GFR 104; Globulin 2.9 g/dL (2.4-3.5); Glucose 108 mg/dL (80-115); Phosphorus 2.9 mg/dL (2.3-4.7); Potassium 4.3 mmol/L (3.5-5.1); Protein, Total 6.8 g/dL (5.8-8.1); Sodium 139 mmol/L (136-145); Uric Acid 5.4 mg/dL (3.5-7.2)
[2022-01-19 16:24] LABS: LDH 275 U/L (125-220)
== END 2022-01-19 08:17 | disposition home or self-care (01) ==
LOC: MADLAB 08:16
PROVIDERS: ATTEND Internal Medicine Hematology & Oncology
DX: C34.02 Malignant neoplasm of left main bronchus (principal); D69.59 Other secondary thrombocytopenia; B02.9 Zoster without complications
CPT/HCPCS: 36415; 80053; 82248; 83615; 84100; 84439; 84443; 84550; 85027

== ENCOUNTER 2022-03-23 15:39 | Outpatient (CLI) | payer MEDICARE, BC ==
[2022-03-23 16:11] LABS: ALT (SGPT) 23 U/L (8-55); AST (SGOT) 22 U/L (5-34); Alkaline Phosphatase 72 U/L (40-110); Anion Gap 12 mmol/L (10-20); BUN (Urea Nitrogen) 23 mg/dL (8.4-25.7); Bilirubin, Direct 0.3 mg/dL (0.1-0.3); Bilirubin, Total 0.6 mg/dL (0.2-1.2); Calc. Creatinine Clearance 0 mL/min (70-130); Carbon Dioxide 27 mmol/L (23-31); Chloride 109 mmol/L (98-107); Estimated GFR 99; Globulin 2.3 g/dL (2.4-3.5); Glucose 92 mg/dL (80-115); Phosphorus 3.1 mg/dL (2.3-4.7); Potassium 4.1 mmol/L (3.5-5.1); Protein, Total 6.3 g/dL (5.8-8.1); Sodium 144 mmol/L (136-145); Uric Acid 6.2 mg/dL (3.5-7.2)
[2022-03-23 16:35] LABS: #Basophils 0.1 thou/uL (0.0-0.2); #Eosinphils 0.4 thou/uL (0.0-0.7); #Lymphocytes 1.7 thou/uL (1.20-3.40); #Monocytes 0.5 thou/uL (0.11-0.59); #Neutrophils 4.8 thou/uL (1.40-6.50); %Basophils 1.4 % (0.0-1.0); %Eosinophils 5.8 % (0.0-10.0); %Lymphocytes 22.5 % (21.0-51.0); %Monocytes 7.1 % (0.0-10.0); %Neutrophils 63.2 % (42.0-75.0); Hemoglobin 16.3 g/dL (14.0-18.0); Mean Corpuscular Hemoglobin 31.3 pg (27.0-31.0); Mean Corpuscular Volume 97.8 fL (78.0-98.0); Mean Platelet Volume 7.6 fL (7.4-10.4); Platelet Count 155 thou/uL (130-400); White Blood Cell (WBC) Count 7.6 thou/uL (4.8-10.8)
[2022-03-23 21:53] LABS: LDH 295 U/L (125-220)
[2022-03-23 22:13] LABS: T4 8.1 ug/dL (4.87-11.72)
[2022-03-24 04:45] LABS: Follow-up Chemistry Comp? YES; Follow-up Result - Chemistry REPORT FAXED
== END 2022-03-23 15:40 | disposition home or self-care (01) ==
LOC: MADLAB 15:39
PROVIDERS: ATTEND Internal Medicine Hematology & Oncology
DX: C34.02 Malignant neoplasm of left main bronchus (principal); D69.59 Other secondary thrombocytopenia; B02.9 Zoster without complications
CPT/HCPCS: 36415; 80053; 82248; 83615; 84100; 84436; 84443; 84550; 85025

== ENCOUNTER 2022-04-14 15:48 | Outpatient (CLI) | payer MEDICARE, BC ==
[2022-04-14 16:16] LABS: #Basophils 0.1 thou/uL (0.0-0.2); #Eosinphils 0.3 thou/uL (0.0-0.7); #Monocytes 0.5 thou/uL (0.11-0.59); #Neutrophils 4.1 thou/uL (1.40-6.50); %Basophils 1.1 % (0.0-1.0); %Eosinophils 4.5 % (0.0-10.0); %Lymphocytes 28.3 % (21.0-51.0); %Neutrophils 59.1 % (42.0-75.0); Hemoglobin 16.2 g/dL (14.0-18.0); Mean Corpuscular HGB CONC 32.5 g/dL (32.0-36.0); Mean Corpuscular Hemoglobin 32.2 pg (27.0-31.0); Mean Corpuscular Volume 99.1 fl (78.0-98.0); Platelet Count 129 thou/uL (130-400); RBC Distribution Width 13.2 % (11.5-14.5); Red Blood Cell (RBC) Count 5.05 mill/uL (4.70-6.10)
[2022-04-14 16:36] LABS: ALT (SGPT) 20 U/L (8-55); AST (SGOT) 18 U/L (5-34); Albumin 3.7 g/dL (3.4-4.8); Alkaline Phosphatase 74 U/L (40-110); Anion Gap 11 mmol/L (10-20); BUN (Urea Nitrogen) 21 mg/dL (8.4-25.7); Bilirubin, Direct 0.2 mg/dL (0.1-0.3); Bilirubin, Total 0.5 mg/dL (0.2-1.2); Calc. Creatinine Clearance 0 mL/min (70-130); Calcium 8.7 mg/dL (7.8-10.44); Carbon Dioxide 26 mmol/L (23-31); Chloride 109 mmol/L (98-107); Estimated GFR 102; Glucose 108 mg/dL (80-115); Phosphorus 3.2 mg/dL (2.3-4.7); Potassium 4.1 mmol/L (3.5-5.1); Protein, Total 6.7 g/dL (5.8-8.1); Sodium 142 mmol/L (136-145); Uric Acid 5.5 mg/dL (3.5-7.2)
[2022-04-14 17:11] LABS: Thyroid Stimulating Hormone 0.6362 uIU/mL (0.35-4.94)
[2022-04-14 22:40] LABS: LDH 226 U/L (125-220)
== END 2022-04-14 15:49 | disposition home or self-care (01) ==
LOC: MADLAB 15:48
PROVIDERS: ATTEND Internal Medicine Hematology & Oncology
DX: C34.02 Malignant neoplasm of left main bronchus (principal); D69.59 Other secondary thrombocytopenia; B02.9 Zoster without complications
CPT/HCPCS: 36415; 80053; 82248; 83615; 84100; 84436; 84443; 84550; 85025

== ENCOUNTER 2022-07-27 18:33 | Emergency (ER) | payer OTHER, MEDICARE, BC | END 2022-07-27 20:11 | disposition home or self-care (01) | LOC: MADERS 18:33 | DX: S20.211A Contusion of right front wall of thorax, initial encounter (principal); M79.644 Pain in right finger(s); I48.91 Unspecified atrial fibrillation; K21.9 Gastro-esophageal reflux disease without esophagitis; I10 Essential (primary) hypertension; E78.00 Pure hypercholesterolemia, unspecified; E66.9 Obesity, unspecified; G47.30 Sleep apnea, unspecified; W01.0XXA Fall on same level from slipping, tripping and stumbling without subsequent striking against object, initial encounter; Y93.E9 Activity, other interior property and clothing maintenance; Y92.009 Unspecified place in unspecified non-institutional (private) residence as the place of occurrence of the external cause; Z87.891 Personal history of nicotine dependence; Z85.118 Personal history of other malignant neoplasm of bronchus and lung ==

== ENCOUNTER 2022-07-28 11:22 | Outpatient (CLI) | payer MEDICARE, BC ==
[2022-07-28 11:53] LABS: Hemoglobin 16.3 g/dL (14.0-18.0); Mean Corpuscular HGB CONC 33.4 g/dL (32.0-36.0); Mean Corpuscular Volume 92.8 fl (78.0-98.0); Platelet Count 133 10x3/uL (130-400); RBC Distribution Width 12.4 % (11.5-14.5); Red Blood Cell (RBC) Count 5.28 mill/uL (4.70-6.10); White Blood Cell (WBC) Count 7.2 10x3/uL (4.8-10.8)
[2022-07-28 12:04] LABS: ALT (SGPT) 22 U/L (8-55); AST (SGOT) 18 U/L (5-34); Albumin 3.9 g/dL (3.4-4.8); Alkaline Phosphatase 75 U/L (40-110); Anion Gap 14 mmol/L (10-20); BUN (Urea Nitrogen) 26 mg/dL (8.4-25.7); Bilirubin, Direct 0.3 mg/dL (0.1-0.3); Bilirubin, Total 0.7 mg/dL (0.2-1.2); Calc. Creatinine Clearance 0 mL/min (70-130); Calcium 9.1 mg/dL (7.8-10.44); Carbon Dioxide 22 mmol/L (23-31); Chloride 110 mmol/L (98-107); Estimated GFR 100; Globulin 2.8 g/dL (2.4-3.5); Glucose 146 mg/dL (80-115); Potassium 3.9 mmol/L (3.5-5.1); Protein, Total 6.7 g/dL (5.8-8.1); Sodium 142 mmol/L (136-145); Uric Acid 5.5 mg/dL (3.5-7.2)
[2022-07-28 12:24] LABS: Thyroid Stimulating Hormone 0.4972 uIU/mL (0.35-4.94)
[2022-07-28 16:38] LABS: LDH 274 U/L (125-220)
[2022-07-28 16:55] LABS: T4 8.1 ug/dL (4.87-11.72)
== END 2022-07-28 11:23 | disposition home or self-care (01) ==
LOC: MADLAB 11:22
PROVIDERS: ATTEND Internal Medicine Hematology & Oncology
DX: C34.02 Malignant neoplasm of left main bronchus (principal); D69.59 Other secondary thrombocytopenia; B02.9 Zoster without complications
CPT/HCPCS: 36415; 80053; 82248; 83615; 84100; 84436; 84443; 84550; 85027

== ENCOUNTER 2025-01-08 07:07 | Outpatient (CLI) | payer MEDICARE, BC ==
[2025-01-08 07:46] LABS: ALT (SGPT) 18 U/L (Less than 45); AST (SGOT) 22 U/L (11-34); Albumin 3.7 g/dL (3.1-4.5); Alkaline Phosphatase 67 U/L (40-110); Anion Gap 11 mmol/L (10-20); BUN (Urea Nitrogen) 24 mg/dL (8.4-25.7); Bilirubin, Total 0.6 mg/dL (0.3-1.2); Calc. Creatinine Clearance 0 mL/min (70-130); Calcium 8.8 mg/dL (7.8-10.44); Carbon Dioxide 24 mmol/L (23-31); Cardiac Risk 3.1 (Less than 4.5); Chloride 111 mmol/L (98-107); Cholesterol 80 mg/dl (< 200 Desired); Globulin 2.8 g/dL (2.4-3.5); Glucose 114 mg/dL (80-115); HDL Cholesterol 26 mg/dL (>60 Neg Risk); LDL Cholesterol, Calculated 36 mg/dL; Potassium 4.2 mmol/L (3.5-5.1); Sodium 142 mmol/L (136-145); Triglycerides 89 mg/dL (Less than 150)
== END 2025-01-08 07:08 | disposition home or self-care (01) ==
LOC: MADLAB 07:07
PROVIDERS: ATTEND Nurse Practitioner Family
DX: E78.00 Pure hypercholesterolemia, unspecified (principal)
CPT/HCPCS: 36415; 80053; 80061

== ENCOUNTER 2025-01-25 07:36 | Outpatient (CLI) | payer MEDICARE, BC ==
[2025-01-25 08:35] LABS: #Basophils 0.1 thou/uL (0.0-0.2); #Eosinophils 0.3 thou/uL (0.0-0.7); #Lymphocytes 1.4 thou/uL (1.20-3.40); #Monocytes 0.5 thou/uL (0.11-0.59); #Neutrophils 4.7 thou/uL (1.40-6.50); %Basophils 1.4 % (0.0-1.0); %Eosinophils 4.5 % (0.0-10.0); %Lymphocytes 20.1 % (21.0-51.0); %Monocytes 7.4 % (0.0-10.0); %Neutrophils 66.6 % (42.0-75.0); Hematocrit 50.3 % (42.0-52.0); Hemoglobin 16.0 g/dL (14.0-18.0); Mean Corpuscular Hemoglobin 30.5 pg (27.0-31.0); Mean Corpuscular Volume 95.8 fl (78.0-98.0); Platelet Count 151 10x3/uL (130-400); Red Blood Cell (RBC) Count 5.25 mill/uL (4.70-6.10); White Blood Cell (WBC) Count 7.1 10x3/uL (4.8-10.8)
[2025-01-25 08:45] LABS: ALT (SGPT) 18 U/L (Less than 45); AST (SGOT) 24 U/L (11-34); Albumin 3.8 g/dL (3.1-4.5); Alkaline Phosphatase 69 U/L (40-110); Anion Gap 13 mmol/L (10-20); BUN (Urea Nitrogen) 22 mg/dL (8.4-25.7); Bilirubin, Total 0.9 mg/dL (0.3-1.2); Calc. Creatinine Clearance 0 mL/min (70-130); Calcium 8.7 mg/dL (7.8-10.44); Carbon Dioxide 23 mmol/L (23-31); Chloride 110 mmol/L (98-107); Globulin 2.8 g/dL (2.4-3.5); Glucose 105 mg/dL (80-115); Potassium 4.1 mmol/L (3.5-5.1); Sodium 142 mmol/L (136-145); Uric Acid 5.6 mg/dL (3.7-7.7)
[2025-01-25 09:04] LABS: Thyroid Stimulating Hormone 0.7224 uIU/mL (0.35-4.94)
[2025-01-25 12:38] LABS: T4 7.6 ug/dL (4.87-11.72)
== END 2025-01-25 07:37 | disposition home or self-care (01) ==
LOC: MADLAB 07:36
PROVIDERS: ATTEND Internal Medicine Hematology & Oncology
DX: C34.02 Malignant neoplasm of left main bronchus (principal); D69.59 Other secondary thrombocytopenia; B02.9 Zoster without complications
CPT/HCPCS: 80053; 83615; 84436; 84443; 84550; 85025

== ENCOUNTER 2025-02-16 08:00 | Outpatient (CLI) | payer MEDICARE, BC ==
[2025-02-16 08:26] LABS: #Basophils 0.1 thou/uL (0.0-0.2); #Eosinophils 0.4 thou/uL (0.0-0.7); #Lymphocytes 1.7 thou/uL (1.20-3.40); #Monocytes 0.5 thou/uL (0.11-0.59); #Neutrophils 4.7 thou/uL (1.40-6.50); %Basophils 1.1 % (0.0-1.0); %Eosinophils 5.1 % (0.0-10.0); %Lymphocytes 23.3 % (21.0-51.0); %Monocytes 6.6 % (0.0-10.0); %Neutrophils 63.9 % (42.0-75.0); Hematocrit 49.6 % (42.0-52.0); Hemoglobin 16.3 g/dL (14.0-18.0); Mean Corpuscular Hemoglobin 31.2 pg (27.0-31.0); Mean Corpuscular Volume 95.0 fl (78.0-98.0); Platelet Count 146 10x3/uL (130-400); Red Blood Cell (RBC) Count 5.22 mill/uL (4.70-6.10); White Blood Cell (WBC) Count 7.4 10x3/uL (4.8-10.8)
[2025-02-16 08:43] LABS: ALT (SGPT) 15 U/L (Less than 45); AST (SGOT) 22 U/L (11-34); Albumin 3.9 g/dL (3.1-4.5); Alkaline Phosphatase 71 U/L (40-110); Anion Gap 13 mmol/L (10-20); BUN (Urea Nitrogen) 21 mg/dL (8.4-25.7); Bilirubin, Total 0.8 mg/dL (0.3-1.2); Calc. Creatinine Clearance 0 mL/min (70-130); Calcium 8.8 mg/dL (7.8-10.44); Carbon Dioxide 24 mmol/L (23-31); Chloride 109 mmol/L (98-107); Globulin 3.0 g/dL (2.4-3.5); Glucose 105 mg/dL (80-115); Potassium 4.2 mmol/L (3.5-5.1); Sodium 142 mmol/L (136-145)
[2025-02-16 08:57] LABS: Thyroid Stimulating Hormone 1.6967 uIU/mL (0.35-4.94)
[2025-02-16 09:16] LABS: Uric Acid 5.7 mg/dL (3.7-7.7)
[2025-02-16 15:10] LABS: T4 8.37 ug/dL (4.87-11.72)
== END 2025-02-16 08:01 | disposition home or self-care (01) ==
LOC: MADLAB 08:00
PROVIDERS: ATTEND Internal Medicine Hematology & Oncology
DX: C34.02 Malignant neoplasm of left main bronchus (principal); D69.59 Other secondary thrombocytopenia; B02.9 Zoster without complications
CPT/HCPCS: 36415; 80053; 83615; 84436; 84443; 84550; 85025

== ENCOUNTER 2025-03-31 09:45 | Outpatient (CLI) | payer MEDICARE, BC ==
[2025-03-31 10:05] LABS: Hematocrit 49.4 % (42.0-52.0); Hemoglobin 15.9 g/dL (14.0-18.0); Mean Corpuscular Hemoglobin 30.3 pg (27.0-31.0); Mean Corpuscular Volume 94.0 fl (78.0-98.0); Platelet Count 151 10x3/uL (130-400); Red Blood Cell (RBC) Count 5.25 mill/uL (4.70-6.10); White Blood Cell (WBC) Count 6.2 10x3/uL (4.8-10.8)
[2025-03-31 10:19] LABS: ALT (SGPT) 16 U/L (Less than 45); AST (SGOT) 22 U/L (11-34); Albumin 3.7 g/dL (3.1-4.5); Alkaline Phosphatase 71 U/L (40-110); Anion Gap 14 mmol/L (10-20); BUN (Urea Nitrogen) 21 mg/dL (8.4-25.7); Bilirubin, Total 0.8 mg/dL (0.3-1.2); Calc. Creatinine Clearance 0 mL/min (70-130); Calcium 8.8 mg/dL (7.8-10.44); Carbon Dioxide 23 mmol/L (23-31); Chloride 108 mmol/L (98-107); Globulin 3.4 g/dL (2.4-3.5); Glucose 107 mg/dL (80-115); Potassium 4.2 mmol/L (3.5-5.1); Sodium 141 mmol/L (136-145); Uric Acid 5.6 mg/dL (3.7-7.7)
== END 2025-03-31 09:46 | disposition home or self-care (01) ==
LOC: MADLAB 09:45
PROVIDERS: ATTEND Internal Medicine Hematology & Oncology
DX: C34.02 Malignant neoplasm of left main bronchus (principal); B02.9 Zoster without complications; D69.59 Other secondary thrombocytopenia
CPT/HCPCS: 36415; 80053; 83615; 84436; 84443; 84550; 85027

== ENCOUNTER 2025-04-26 07:34 | Outpatient (CLI) | payer MEDICARE, BC ==
[2025-04-26 08:38] LABS: ALT (SGPT) 17 U/L (Less than 45); AST (SGOT) 21 U/L (11-34); Albumin 3.8 g/dL (3.1-4.5); Alkaline Phosphatase 70 U/L (40-110); Anion Gap 14 mmol/L (10-20); BUN (Urea Nitrogen) 23 mg/dL (8.4-25.7); Bilirubin, Total 0.8 mg/dL (0.3-1.2); Calc. Creatinine Clearance 0 mL/min (70-130); Calcium 8.8 mg/dL (7.8-10.44); Carbon Dioxide 23 mmol/L (23-31); Chloride 108 mmol/L (98-107); Globulin 3.1 g/dL (2.4-3.5); Glucose 113 mg/dL (80-115); Potassium 4.1 mmol/L (3.5-5.1); Sodium 141 mmol/L (136-145); Uric Acid 5.4 mg/dL (3.7-7.7)
[2025-04-26 09:57] LABS: #Basophils 0.1 thou/uL (0.0-0.2); #Eosinophils 0.4 thou/uL (0.0-0.7); #Lymphocytes 1.7 thou/uL (1.20-3.40); #Monocytes 0.5 thou/uL (0.11-0.59); #Neutrophils 4.3 thou/uL (1.40-6.50); %Basophils 1.4 % (0.0-1.0); %Eosinophils 5.6 % (0.0-10.0); %Lymphocytes 24.0 % (21.0-51.0); %Monocytes 7.1 % (0.0-10.0); %Neutrophils 61.9 % (42.0-75.0); Hematocrit 52.0 % (42.0-52.0); Hemoglobin 16.0 g/dL (14.0-18.0); MDiff Complete? YES; Mean Corpuscular Hemoglobin 30.1 pg (27.0-31.0); Mean Corpuscular Volume 97.8 fl (78.0-98.0); Platelet Adequacy Comment Appears Adequate; Platelet Count 130 10x3/uL (130-400); Red Blood Cell (RBC) Count 5.32 mill/uL (4.70-6.10); White Blood Cell (WBC) Count 7.0 10x3/uL (4.8-10.8)
[2025-04-26 12:55] LABS: T4 8.53 ug/dL (4.87-11.72)
== END 2025-04-26 07:35 | disposition home or self-care (01) ==
LOC: MADLAB 07:34
PROVIDERS: ATTEND Internal Medicine Hematology & Oncology
DX: C34.02 Malignant neoplasm of left main bronchus (principal); D69.59 Other secondary thrombocytopenia; B02.9 Zoster without complications
CPT/HCPCS: 36415; 80053; 83615; 84436; 84443; 84550; 85025

== ENCOUNTER 2025-05-12 13:26 | Outpatient (CLI) | payer MEDICARE, BC ==
[2025-05-12 13:50] LABS: Hematocrit 53.0 % (42.0-52.0); Hemoglobin 16.7 g/dL (14.0-18.0); Mean Corpuscular Hemoglobin 30.6 pg (27.0-31.0); Mean Corpuscular Volume 97.1 fl (78.0-98.0); Platelet Count 158 10x3/uL (130-400); Red Blood Cell (RBC) Count 5.46 mill/uL (4.70-6.10); White Blood Cell (WBC) Count 7.5 10x3/uL (4.8-10.8)
== END 2025-05-12 13:27 | disposition home or self-care (01) ==
LOC: MADLAB 13:26
PROVIDERS: ATTEND Internal Medicine Hematology & Oncology
DX: C34.02 Malignant neoplasm of left main bronchus (principal); D69.59 Other secondary thrombocytopenia; B02.9 Zoster without complications
CPT/HCPCS: 36415; 84436; 84443; 85027

== ENCOUNTER 2025-06-04 14:52 | Outpatient (CLI) | payer MEDICARE, BC ==
[2025-06-04 15:16] LABS: #Basophils 0.1 thou/uL (0.0-0.2); #Eosinophils 0.4 thou/uL (0.0-0.7); #Lymphocytes 2.1 thou/uL (1.20-3.40); #Monocytes 0.6 thou/uL (0.11-0.59); #Neutrophils 4.8 thou/uL (1.40-6.50); %Basophils 1.3 % (0.0-1.0); %Eosinophils 5.6 % (0.0-10.0); %Lymphocytes 25.9 % (21.0-51.0); %Monocytes 7.6 % (0.0-10.0); %Neutrophils 59.5 % (42.0-75.0); Hematocrit 50.3 % (42.0-52.0); Hemoglobin 16.0 g/dL (14.0-18.0); Mean Corpuscular Hemoglobin 30.6 pg (27.0-31.0); Mean Corpuscular Volume 96.2 fl (78.0-98.0); Platelet Count 139 10x3/uL (130-400); Red Blood Cell (RBC) Count 5.22 mill/uL (4.70-6.10); White Blood Cell (WBC) Count 8.0 10x3/uL (4.8-10.8)
[2025-06-04 22:51] LABS: T4 7.88 ug/dL (4.87-11.72)
== END 2025-06-04 14:53 | disposition home or self-care (01) ==
LOC: MADLAB 14:52
PROVIDERS: ATTEND Internal Medicine Hematology & Oncology
DX: C34.02 Malignant neoplasm of left main bronchus (principal); D69.59 Other secondary thrombocytopenia; B02.9 Zoster without complications
CPT/HCPCS: 36415; 84436; 84443; 85025